=== PATIENT | male | born 1935 | race Caucasian/White ===

== ENCOUNTER 2016-12-29 06:41 | Emergency (ER) | payer OTHER, MEDICARE ==
[~2016-12-29] VITALS: Ht 188 cm; Wt 90.7 kg
[~2016-12-29 06:41] MED LIST: ACULAR10 ML OPHTHALMIC; ADULT LOW DOSE81 MG PO; ALPRAZOLAM 0.50.5 MG; CARVEDILOL12.5 MG PO; COREG PO; COREG25 MG PO; COUMADIN 1MG TAB1 M1 PO; COUMADIN 2 MG TA2 M1 PO; COUMADIN 5 MG TA5 M1 PO; FLONASE 0.05%50 MCG; FUROSEMIDE 20 M20 M1 PO; KEFLEX500 MG PO; LIPITOR20 MG PO; LOVENOX SQ; MECLIZINE 25 MG25 M1 PO; PACERONE 200 M200 M1 PO; PACERONE100 MG PO; PRADAXA150 MG PO; PRED-FORTE OPHTH1 M1 OP; QUINAPRIL 20 MG20 MG PO; QUINU10 PD PO; TORSEMIDE20 MG PO; VIGAMOX3 M1 OPHTHALMIC; XANAX 0.5 MG0.5 M1 PO; XANAX XR2 MG PO; XIBROM5 ML
[2016-12-29] MEDS ORDERED: COUMADIN 1MG TAB1 M1 (06:55)
[2016-12-29] MEDS ORDERED: XANAX 0.5 MG0.5 MG PO (06:56)
[2016-12-29] MEDS ORDERED: DIGOXIN125 MCG PO (06:56)
[2016-12-29] MEDS ORDERED: ACETAMINOPHEN325 M1 PO (06:57)
[2016-12-29 07:25] LABS: HEMATOCRIT 31.9 % (42.0-52.0); HEMOGLOBIN 10.9 gm/dL (14.0-18.0); MCH 32.4 pg (26.0-34.0); MCHC 34.2 g/dL (28.0-37.0); MCV 94.7 fL (80.0-100.0); RBC 3.37 mil/uL (4.50-6.00); RDW 15.3 % (10.5-14.5); WBC 7.3 thou/uL (4.0-11.0)
[2016-12-29 07:34] LABS: PROTIME 31.5 Seconds (9.3-11.4)
== END 2016-12-29 08:07 | disposition home or self-care (01) ==
LOC: ER 06:41
PROVIDERS: Emergency Medicine
DX: S70.02XA Contusion of left hip, initial encounter (principal); I11.0 Hypertensive heart disease with heart failure; I50.9 Heart failure, unspecified; I25.10 Atherosclerotic heart disease of native coronary artery without angina pectoris; Z88.8 Allergy status to other drugs, medicaments and biological substances; Z87.891 Personal history of nicotine dependence; Z79.01 Long term (current) use of anticoagulants; W18.30XA Fall on same level, unspecified, initial encounter; Y93.89 Activity, other specified; Y92.89 Other specified places as the place of occurrence of the external cause; Y99.9 Unspecified external cause status; I48.91 Unspecified atrial fibrillation

== ENCOUNTER 2017-02-16 10:16 | Emergency (ER) | payer OTHER, MEDICARE ==
[~2017-02-16] VITALS: Ht 188 cm; Wt 90.7 kg
[~2017-02-16 10:16] MED LIST changes: +ACETAMINOPHEN325 M1 PO; +COUMADIN 1MG TAB1 M1; +DIGOXIN125 MCG PO; +XANAX 0.5 MG0.5 MG PO
[2017-02-16 11:21] LABS: HEMATOCRIT 36.3 % (42.0-52.0); HEMOGLOBIN 12.2 gm/dL (14.0-18.0); MCH 32.8 pg (26.0-34.0); MCHC 33.7 g/dL (28.0-37.0); MCV 97.3 fL (80.0-100.0); RBC 3.73 mil/uL (4.50-6.00); RDW 14.1 % (10.5-14.5); WBC 6.6 thou/uL (4.0-11.0)
[2017-02-16 11:33] LABS: INR 3.7
== END 2017-02-16 12:51 | disposition home or self-care (01) ==
LOC: ER 10:16
PROVIDERS: Emergency Medicine
DX: S80.01XA Contusion of right knee, initial encounter (principal); R79.1 Abnormal coagulation profile; I48.91 Unspecified atrial fibrillation; I11.0 Hypertensive heart disease with heart failure; I50.9 Heart failure, unspecified; I25.10 Atherosclerotic heart disease of native coronary artery without angina pectoris; F10.99 Alcohol use, unspecified with unspecified alcohol-induced disorder; Z88.8 Allergy status to other drugs, medicaments and biological substances; Z87.891 Personal history of nicotine dependence; W01.0XXA Fall on same level from slipping, tripping and stumbling without subsequent striking against object, initial encounter; Y93.01 Activity, walking, marching and hiking; Y92.092 Bedroom in other non-institutional residence as the place of occurrence of the external cause; Y99.8 Other external cause status

== ENCOUNTER → 2017-09-03 | Outpatient (CLI) | payer OTHER, MEDICARE ==
[~2017-09-03] VITALS: Ht 188 cm; Wt 82.6 kg
--- NOTE | ~2017-09-03 | P ---
[facility] [place] [address] PROCEDURE REPORT Name: STAR DEVLIN Room #: REG [facility]#: [id number] Admission: 09/03/17 Attend Phys: Harley Francisco MD Discharge: Date of : 36 Report #: [id number] THIS REPORT FOR: //name// CC: Luis Francisco PROCEDURE: AV node ablation. PREOPERATIVE DIAGNOSES: Atrial fibrillation and decreased right ventricular pacing. POSTOPERATIVE DIAGNOSES: Atrial fibrillation and decreased right ventricular pacing. HISTORY: The patient is a gentleman with a history of cardiomyopathy, status post BiV ICD who has had atrial fibrillation with rapid ventricular response and difficult to control rates who has decreased biventricular pacing and he is here for an AV node ablation. DESCRIPTION OF PROCEDURE: The patient underwent informed consent. We discussed the details of the procedure including the risks, which include but not limited to bleeding, vascular damage, stroke and [place]. The patient was sedated by the Anesthesiology Service and then I obtained access to the right femoral vein x 1, placing a SR0 sheath and 8 mm ablation catheter into the right atrium. At baseline, the patient was in atrial fibrillation with a ventricular cycle length of 500 milliseconds, QRS duration of 125 milliseconds, QT interval of 380 milliseconds and an HV interval of 52 milliseconds. Prior to the ablation, his ICD was reprogrammed, therapies were off and he was programmed to a VVI 40 mode. Next, ablation was performed at 70 arteaga 60 degrees and within 3.9 seconds, there was evidence of complete heart block. We monitored for a period of 30 minutes and there was no return of conduction. His device was reinterrogated and found to be functioning normally and its therapies were programmed back on. The catheters and sheaths were pulled. Hemostasis was obtained. The patient awoke neurologically and hemodynamically intact with no complications and no significant bleeding. CONCLUSIONS: 1. Successful ablation of the AV node. 2. Successful ICD pacemaker reprogramming. <ELECTRONICALLY SIGNED> By: Harley Francisco MD 09/28/17 0904 1124 00 Harley Francisco MD /nt
[2017-09-03 07:16] VITALS: BP 120/74
[2017-09-03 08:11] LABS: HEMATOCRIT 38.6 % (42.0-52.0); HEMOGLOBIN 13.3 gm/dL (14.0-18.0); MCH 32.7 pg (26.0-34.0); MCHC 34.6 g/dL (28.0-37.0); MCV 94.5 fL (80.0-100.0); PLATELET COUNT 191 thou/uL (150-400); RBC 4.09 mil/uL (4.50-6.00); RDW 14.2 % (10.5-14.5); WBC 5.3 thou/uL (4.0-11.0)
[2017-09-03 08:24] LABS: APTT 30.1 Seconds (24.5-32.8); INR 1.4; PROTIME 14.5 Seconds (9.3-11.4)
[2017-09-03 08:27] LABS: CALCIUM 8.5 mg/dL (8.5-10.1); CREATININE 0.9 mg/dL (0.7-1.3)
[2017-09-03 08:32] LABS: ALBUMIN 2.9 g/dL (3.4-5.0); TOTAL BILIRUBIN 0.3 mg/dL (<0.1-1.0)
[2017-09-03 09:28] LABS: ABSOLUTE NEUTROPHILS 2.4 thou/uL (1.4-8.2)
== END | disposition home or self-care (01) ==
LOC: CATH 06:42
PROVIDERS: Internal Medicine Cardiovascular Disease
DX: I48.91 Unspecified atrial fibrillation (principal); I25.5 Ischemic cardiomyopathy; I49.5 Sick sinus syndrome; I11.0 Hypertensive heart disease with heart failure; I50.9 Heart failure, unspecified; I21.3 ST elevation (STEMI) myocardial infarction of unspecified site; Z95.0 Presence of cardiac pacemaker; Z87.891 Personal history of nicotine dependence
CPT/HCPCS: 62110; 62900; 70005

== ENCOUNTER 2017-10-01 04:43 | Emergency (ER) | payer OTHER, MEDICARE ==
[~2017-10-01] VITALS: Ht 188 cm; Wt 84.4 kg
--- NOTE | ~2017-10-01 | EKG ---
[address] [address] [place] [address] ELECTROCARDIOGRAM REPORT Name: LILIYA DEVLINALD Nik Room #: [facility] Ava#: [id number] Admission: 10/01/17 Attend Phys: Discharge: 10/01/17 Date of : 36 Report #: [id number] THIS REPORT FOR: //name// [facility] ED Test Date: 2017-10-01 Test Time: 04:53:55 Pat Name: STAR DEVLIN Department: Room: Gender: Size Tester: LESLIE : 1935 Requested By: Marcio Valdovinos Order Number: [id number] MD: Jairo Real Measurements Intervals [place] Rate: 80 P: CA: QRS: 131 QRSD: 156 T: 110 QT: 455 QTc: 525 Interpretive Statements Ventricular-paced rhythm No further analysis attempted due to paced rhythm Compared to ECG 06/22/2016 12:15:36 No significant change Electronically Signed On 10-01-2017 8:18:38 COUNTRY PRINTER APPRENTICE by Jairo Real [email or web address] <ELECTRONICALLY SIGNED> By: Jairo Real MD, [facility] 10/01/17817 0453 0453 Jairo Real MD, FACC /EPI
[2017-10-01 05:24] LABS: HEMATOCRIT 39.7 % (42.0-52.0); HEMOGLOBIN 13.4 gm/dL (14.0-18.0); MCH 32.2 pg (26.0-34.0); MCHC 33.8 g/dL (28.0-37.0); MCV 95.3 fL (80.0-100.0); RBC 4.17 mil/uL (4.50-6.00); RDW 13.8 % (10.5-14.5); WBC 6.1 thou/uL (4.0-11.0)
[2017-10-01 05:31] LABS: ANION GAP 9 mmol/L (7-16); BUN 20 mg/dL (7-18); CALCIUM 8.1 mg/dL (8.5-10.1); CHLORIDE 106 mmol/L (98-107); CO2 27 mmol/L (21-32); CREATININE 1.1 mg/dL (0.7-1.3); GLUCOSE 123 mg/dL (74-106); POTASSIUM 4.4 mmol/L (3.5-5.1); SODIUM 142 mmol/L (136-145)
[2017-10-01 05:38] LABS: TROPONIN-I < 0.04 ng/mL (<0.06)
[2017-10-01 07:17] VITALS: BP 132/76
== END 2017-10-01 07:18 | disposition home or self-care (01) ==
LOC: ER 04:43
PROVIDERS: Emergency Medicine
DX: R06.00 Dyspnea, unspecified (principal); R06.02 Shortness of breath; I11.0 Hypertensive heart disease with heart failure; I50.9 Heart failure, unspecified; I48.91 Unspecified atrial fibrillation; Z87.891 Personal history of nicotine dependence

== ENCOUNTER 2018-12-08 21:30 | Inpatient (IN) | payer OTHER, MEDICARE ==
[~2018-12-08] VITALS: Ht 188 cm; Wt 90.7 kg
--- NOTE | ~2018-12-08 | D ---
[facility] [place] [address] DISCHARGE SUMMARY Name: STAR DEVLIN Room #: 360-[facility] IN M.R.#: [id number] Admission: 12/09/18 ������������������ Attend Phys: Mitch Macario Discharge: 12/11/18 ������������������ Date of : 36 Report #: [id number] THIS REPORT FOR: //name// CC: Luis Souza [facility] DATE OF SERVICE: 12/11/2018 FINAL DIAGNOSES: 1. Accidental fall. 2. Contusion of the right knee. 3. Osteoarthritis of the right knee. 4. Laceration of the right elbow. 5. Anticoagulated on Coumadin. 6. Chronic atrial fibrillation. 7. Ischemic cardiomyopathy. HOSPITAL COURSE: The patient was admitted after a fall at home. He had a small laceration of the right elbow that required a few sutures. He had a bruise on the right knee. There were no other fractures identified. He continued his usual home medications. He participated with Physical Therapy during the course of his stay. He still had a lot of pain in his right knee and was weak. He did not feel he could manage at home alone. Plans were made to transfer to a usp facility for continued nursing care and rehabilitation efforts. PHYSICAL EXAMINATION: On the day of discharge: GENERAL: He was awake and alert. VITAL SIGNS: Stable. LUNGS: Clear. HEART: Irregular. ABDOMEN: Soft, normoactive bowel sounds. EXTREMITIES: No edema. There was some bruising around the right knee. DISPOSITION: He is discharged to [facility] with regular diet and activity as tolerated. PT, OT. I will follow his stay there. I signed his transfer orders and discharge medication list. ��������������������������������������������� ���������������������������������������� By: ��������������������������������������������� 0802 1523 Master Carroll MD /nt
[2018-12-08 21:31] VITALS: BP 149/84
[2018-12-08 22:24] LABS: HEMATOCRIT 26.4 % (42.0-52.0); HEMOGLOBIN 8.6 gm/dL (14.0-18.0); MCH 27.1 pg (26.0-34.0); MCHC 32.5 g/dL (28.0-37.0); MCV 83.4 fL (80.0-100.0); RBC 3.16 mil/uL (4.50-6.00); RDW 15.5 % (10.5-14.5); WBC 9.2 thou/uL (4.0-11.0)
[2018-12-08 22:30] LABS: CREATININE 1.2 mg/dL (0.7-1.3); POTASSIUM 4.4 mmol/L (3.5-5.1)
[2018-12-08 22:51] LABS: APTT 35.8 Seconds (24.5-32.8); INR 2.5; PROTIME 26.2 Seconds (9.3-11.4)
[2018-12-09] VITALS (8 sets, daily range): BP systolic 124–165; BP diastolic 54–91
--- NOTE | 2018-12-09 05:36 | NUR ---
PATIENT IS ALERT AND ORIENTED. PATIENT IS UP TIMES TWO. PATIENT HAS A DRESSING ON AVULSION TO RT ELBOW. PATIENTS LBM WAS THE 18TH. PATIENT MANAGES INR FOR WARFARIN AT HOME. PATIENT IS [place] BUT HEARING AIDS ARE LEFT AT HOME. PATIENT HAS A PACEMAKER. PATIENTS HEAD CT AND XRAY OF KNEE ARE NEG. PATIENT HAS A SLIGHT TEMP BUT PATIENT HAS MULT BLANKETS ON. WCM. PATIENT IS RESTING COMFORTABLY IN BED. FALL PRECAUTIONS IN PLACE.
--- NOTE | 2018-12-09 12:07 | NUR ---
assessment: CM REVIEWED CHART AND MET WITH PATIENT AT THE BEDSIDE. PT WAS ADMITTED FOR RIGHT KNEE PAIN AFTER A FALL AT HOME. PT REPORTS HE LIVES IN A HOUSE BY HIMSELF. PT REPORTS HE HAS NO STEPS TO ENTER OR ONCE INSIDE. PT REPORTS HE AMBULATES USING A CANE. PT REPORTS HAVING GRAB BARS IN THE SHOWER AND REPORTS BEING INDEPENDENT WITH ADLS. 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 PT REPORTS THAT HE HAS NOT HAD HH IN THE PAST OR BEEN TO A SNF. PT REPORTS THAT HE WEARS A LIFE ALERT AT HOME AND ALSO HAS A VERY SUPPORTIVE FRIEND (TAD) WHO HELPS HIM OUT IF NEEDED. LESTER IS THE PATIENTS BEST FRIEND. CM SPOKE WITH TAD AND SHE IS THE ONE THAT WILL TAKE PATIENT HOME ONCE MEDICALLY STABLE. CM DISCUSSED ROLE. PT/OT EVALS ARE PENDING. CM WILL CONTINUE TO FOLLOW TO ASSIST NEEDED.
--- NOTE | 2018-12-09 15:32 | NUR ---
PATIENT NOTED TO BE ANXIOUS THIS AM. STATES HE WANTS TO GO HOME TODAY. HE DOES NOT FEEL LIKE STAYING HERE. HE IS HOWEVER QUITE WEAK TO MOVE WITHOUT ASSISTANCE. UNABLE TO BEAR WWEIGHT TO RIGHT LEG DUE TO FALL. HE STATES IT HURTS. PT/OT CONSULTED. WILL AWAIT THIS INPUT.
--- NOTE | 2018-12-10 00:56 | NUR ---
PATIENT IS ALERT AND ORIENTED. PATIENT IS UP TIME 1-2 PIVIOT TRANSFER. PATIENT HAS PT AND OT CONSULTED. PATIENT HAS DIFFICULTY BEARING WEEIGHT ON RT KNEE. PATIENTS PAIN IS CONTROLLED WITH PAIN MEDS IN COMBINATION WITH ANXIETY MEDS. PATIENT IS PENDING DISCHARGE TODAY GIVEN HE CAN RECEIVE HELP TO GET AROUND AT HOME. PATIENT IS RESTING COMFORTABLY IN BED. WCM. PATIENT USES URINAL. FALL PRECAUTIONS IN PLACE. PATIENT IS PROGRESSING TO GOALS
[2018-12-10 05:22] VITALS: BP 120/71
--- NOTE | 2018-12-10 10:28 | H ---
[facility] [place] [address] HISTORY AND PHYSICAL Name: STAR DEVLIN Room #: 360-P ADM IN M.R.#: [id number] Admission: 12/09/18 ������������������ Attend Phys: Mitch Macario Discharge: ������������������ Date of : 36 Report #: [id number] THIS REPORT FOR: //name// CC: Luis Souza [facility] DATE OF SERVICE: 12/09/2018 CHIEF COMPLAINT: Fall and weakness. HISTORY OF PRESENT ILLNESS: The patient is an 82-year-old gentleman who was admitted through the Emergency Room with an accidental fall at home. He said he was in his usual state of health when he was reaching over to grab something from the lower cabinet and he felt his right knee just sort of "gave way" and he fell to the ground. He had no loss of consciousness, chest pain, or vertigo type symptoms leading up to this. He was unable to get up and called his neighbor and they ultimately called for EMS and was brought to the Emergency Room. There, his x-ray revealed degenerative arthritis of the right knee and had a small laceration on the right elbow, required a couple of stitches. Other workup was unremarkable; however, he was unable to stand or walk safely and independently and then was admitted to the hospital. 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 PAST SURGICAL HISTORY: Noncontributory. FAMILY HISTORY: Unknown. SOCIAL HISTORY: He lives alone at home. Prior tobacco use, none current, or alcohol use. ALLERGIES: HYDROCHLOROTHIAZIDE. MEDICATIONS: Alprazolam 0.5 mg, torsemide 20 mg, Coreg 25 mg twice a day, aspirin 81 mg, Coumadin 1 mg, quinapril 10 mg, Tylenol. REVIEW OF SYSTEMS: He denies headache, chest pain, shortness of breath, abdominal pain, nausea, vomiting, diarrhea, constipation, dysuria, syncope. He complains of right knee pain. OBJECTIVE: VITAL SIGNS: Temperature 36.9, pulse 74, respirations 19, blood pressure 138/84, O2 sat 98% on room air. [address] [address] HISTORY AND PHYSICAL Name: STAR DEVLIN Room #: [address] [place] [address] [facility].#: [id number] Admission: 12/09/18 ������������������ Attend Phys: Mitch Macario Discharge: ������������������ Date of : 36 Report #: [id number] GENERAL: He is awake and alert, in no distress. HEAD AND NECK: Unremarkable. LUNGS: Clear. HEART: Irregular. ABDOMEN: Soft, normoactive bowel sounds. EXTREMITIES: No edema. He has bony deformity of the right knee, there is a skin tear in the right elbow. NEUROLOGIC: Cranial nerves intact. He recognizes me. Speech is fluent. He is alert and oriented. LABORATORY DATA: Reviewed. X-ray and CT head reviewed. ASSESSMENT: 1. Accidental fall. 2. Gait disturbance. 3. Degenerative arthritis of the right knee. 4. Chronic atrial fibrillation. 5. Chronic anticoagulation with Coumadin. 6. Hypertension. 7. Cardiomyopathy. 8. Anemia of chronic disease. 9. Senile debility. 10. Small laceration, right elbow. PLAN: Begin therapies today and resume his usual home medications. He may need to pursue some rehabilitation efforts outside the hospital once he is more mobile. ��������������������������������������������� <ELECTRONICALLY SIGNED> ���������������������������������������� By: Master Carroll MD ��������������������������������������������� 12/10/18 1028 1048 1111 Master Carroll MD /nt
[2018-12-10] MEDS ORDERED: TRAMADOL 50 MG50 MG PO (10:45)
[2018-12-10] MEDS ORDERED: ACETAMINOPHEN325 M1 PO (10:45)
--- NOTE | 2018-12-10 12:28 | NUR ---
DISCHARGE PLANNING. ANTICIPATED DISCHARGE TOMORROW. POST ACUTE CARE RECOMMENDED. REFERRAL FAXED TO [facility]. CALL PLACED TO KARINA PATTERSON, TO NOTIFY OF PATIENT REFERRAL AND DISCHARGE NEEDS. VOICEMAIL LEFT FOR YESENIA REGARDING [employer] AND CM CONTACT NUMBER PROVIDED. FOLLOWING TO ASSIST WITH DISCHARGE. UNIT CM/SW AWARE.
--- NOTE | 2018-12-10 14:49 | NUR ---
PATIENT SEEN BY MACRINA CARPENTER NP WITH DR. MATOS. PATIENT DOES NOT MEET CRITERIA FOR ACUTE REHAB STAY AT THIS TIME. IF THERE ARE CHANGES IN THE PATIENT'S MEDICAL CONDITION, FURTHER ASSESSMENT CAN BE COMPLETED. THANK YOU FOR THIS REFERRAL.
[2018-12-10 15:45] VITALS: BP 137/77
--- NOTE | 2018-12-10 16:24 | NUR ---
ASSUMED PATIENT CARE AT 0700. A/O X4. MAX ASSISTED FOR TRANSFER. C/O RIGHT KNEE PAIN WHEN MOVE. SLOWLY TOWARDS POC GOALS.
[2018-12-10 19:45] VITALS: BP 108/67
--- NOTE | 2018-12-11 03:27 | NUR ---
PATIENT IS ADVANCING IN HIS CARE PLAN. VITAL SIGNS STABLE WITH PATIENT HAVING NO COMPLAINTS OF PAIN OR NAUSEA. PATIENT IS MOSTLY ORIENTED BUT OFTEN SHOWS SIGNS OF CONFUSION AND FORGETFULNESS. WOUND DRESSING TO ELBOW CHANGED. PATIENT IS A HIGH FALL RISK AND REQUIRES TWO PERSON MAX ASSIST WHEN TRANSFERRING. PROBABLE DISCHARGE TO SNF TODAY. CONTINUE PLAN OF CARE.
--- NOTE | 2018-12-11 04:18 | NUR ---
ASSUMED PATIENT CARE AT 1845. PATEINT IS ALERT TO PERSON, TIME, AND SITUATION. HE IS CONFUSED AT TIMES WELL FORGETFULL, THINKING HE IS AT HOME. PATIENT IS A HIGH FALL RISK DUE TO HIS ADMITTING DIAGNOSIS OF FALLING AT HOME AND BEING UNABLE TO GET UP. HE IS ALSO A HIGH FALL RISK DUE TO HIS ACTIVITY INTOLERANCE, EXTREME WEAKNESS, AND PATEINTS REQUEST TO BE NON-WEIGHT BEARING ON HIS R LEG. HE IS HAS IMPAIRED SKIN INTEGRITY FROM HIS FALL AT HOME. HE HAS MULTIPLE BRUISES TO HIS BODY WELL A LACERATION WHICH REQUIRED STITCHES TO HIS R ELBOW. THE DISCHARGE PLAN FOR HIM IS TO GO TO [place] FOR REHAB. PATIENT IS PLEASANT AND COOPERATIVE WITH CARE.
[2018-12-11 04:35] VITALS: BP 108/62
[2018-12-11 07:08] VITALS: BP 110/65
[2018-12-11 08:59] VITALS: BP 110/65
--- NOTE | 2018-12-11 13:46 | NUR ---
PATIENT DISCHARGED AT THIS TIME TO SNF. HE DID SEEM WORRIED BUT DISCHARGE PROCESS EXPLAINED TO HIM. HE IS PLEASANT. DOES NOT SEEM TO BE IN PAIN. WILL CONT WITH PLAN OF CARE.
== END 2018-12-11 14:05 | DRG 605 ==
LOC: ER 21:30 → 3W 12-09 01:05 → EROBS 12-09 01:05 → 3W 12-09 02:07
PROVIDERS: Emergency Medicine; ADMIT Internal Medicine
PROC: 0HQDXZZ Repair Right Lower Arm Skin, External Approach (ICD-10-PCS; principal; 2018-12-11)
DX: S51.011A Laceration without foreign body of right elbow, initial encounter (principal); S09.90XA Unspecified injury of head, initial encounter; M25.561 Pain in right knee; I25.5 Ischemic cardiomyopathy; I49.5 Sick sinus syndrome; I25.10 Atherosclerotic heart disease of native coronary artery without angina pectoris; I50.9 Heart failure, unspecified; S80.01XA Contusion of right knee, initial encounter; M17.11 Unilateral primary osteoarthritis, right knee; I48.2 Chronic atrial fibrillation; I11.0 Hypertensive heart disease with heart failure; D63.8 Anemia in other chronic diseases classified elsewhere; Z95.5 Presence of coronary angioplasty implant and graft; Z88.8 Allergy status to other drugs, medicaments and biological substances; Z87.891 Personal history of nicotine dependence; Z79.01 Long term (current) use of anticoagulants; W18.39XA Other fall on same level, initial encounter; Y93.89 Activity, other specified; Y92.89 Other specified places as the place of occurrence of the external cause; Y99.8 Other external cause status; Z95.0 Presence of cardiac pacemaker; Z79.82 Long term (current) use of aspirin; Z79.899 Other long term (current) drug therapy
CPT/HCPCS: 10080

== ENCOUNTER → 2019-01-14 | Outpatient (CLI) | payer OTHER, MEDICARE ==
[~2019-01-14] MED LIST changes: +TRAMADOL 50 MG50 MG PO
== END ==
LOC: CAT 10:08
DX: M17.11 Unilateral primary osteoarthritis, right knee (principal); M71.21 Synovial cyst of popliteal space [Baker], right knee

== ENCOUNTER 2019-04-14 06:00 | Inpatient (IN) | payer OTHER, MEDICARE ==
[2019-04-05 09:54] LABS: ALBUMIN 3.5 g/dL (3.4-5.0); CALCIUM 8.9 mg/dL (8.5-10.1); CREATININE 0.8 mg/dL (0.7-1.3); POTASSIUM 4.5 mmol/L (3.5-5.1)
[2019-04-05 09:57] LABS: HEMATOCRIT 26.5 % (42.0-52.0); HEMOGLOBIN 7.9 gm/dL (14.0-18.0); MCHC 29.7 g/dL (28.0-37.0); MCV 63.9 fL (80.0-100.0); RBC 4.15 mil/uL (4.50-6.00); RDW 19.5 % (10.5-14.5); WBC 6.6 thou/uL (4.0-11.0)
[2019-04-05 10:04] LABS: INR 2.1; PROTIME 22.1 Seconds (9.3-11.4)
[2019-04-05 14:49] LABS: URINE BILIRUBIN NEGATIVE (Negative); URINE BLOOD NEGATIVE (Negative); URINE CLARITY CLEAR; URINE COLOR YELLOW; URINE GLUCOSE-RANDOM* NEGATIVE (Negative); URINE KETONES NEGATIVE (Negative); URINE LEUKOCYTES-REFLEX NEGATIVE (Negative); URINE NITRITE-REFLEX NEGATIVE (Negative); URINE PROTEIN (DIPSTICK) NEGATIVE (Negative); URINE SPECIFIC GRAVITY 1.025 (1.005-1.035); URINE UROBILINOGEN 0.2 E.U./dl (0.2-1.0)
[2019-04-14] VITALS (8 sets, daily range): BP systolic 120–131; BP diastolic 54–72
[~2019-04-14] VITALS: Ht 188 cm; Wt 85.8 kg
--- NOTE | ~2019-04-14 | HC ---
[facility] [place] [address] CONSULTATION Name: STAR DEVLIN Room #: 429-P [facility] IN ..#: [id number] Admission: 04/14/19 Attend Phys: Master Andino MD Discharge: Date of : 36 Report #: [id number] THIS REPORT FOR: //name// CC: Luis Andino DATE OF SERVICE: 04/16/2019 ATTENDING PHYSICIAN: Dr. Master Andino. CONSULTING PHYSICIAN: Dr. Johnnie Plunkett. DICTATING PHYSICIAN: Dr. Johnnie Plunkett. CHIEF COMPLAINT: Right knee surgery. HISTORY OF PRESENT ILLNESS: The patient is an 83-year-old gentleman with known history of right knee pain, which had been progressively getting worse. The patient had failed conservative treatment and underwent right total knee arthroplasty. Postop, he continues to have pain in his right knee, but has been participating in therapy. PAST MEDICAL HISTORY: Significant for history of knee arthritis, hypertension, acute congestive heart failure. PAST SURGICAL HISTORY: Not known. ALLERGIES: He is not known to be allergic to medication. MEDICATIONS: He was currently on lisinopril, Tylenol, aspirin, alprazolam, oxycodone, Zofran, and warfarin for DVT prophylaxis. REVIEW OF SYSTEMS: The patient did complain of having some pain in his right knee. He had low hemoglobin postop and has received blood transfusion. His hemoglobin this morning was 8. He denied having any shortness of breath. The patient is wanting to return home as soon as possible. He denied having any chest pain. No breathing difficulty. No nausea, vomiting, no abdominal pain or urinary symptoms. PHYSICAL EXAMINATION: GENERAL: Pleasant elderly gentleman, who was resting in bed, did not appear to be in distress. He was awake, alert, oriented to place and person. He was having a low-grade. temperature 100.1, pulse of 70, respiratory rate of 16, blood pressure 126/91, oxygen saturation 94% on room air. HEENT: Skull was atraumatic. There was mild pallor, no icterus. Mucosa was moist. [facility] [address] [place] [address] CONSULTATION Name: DEVLINSTAR Room #: 429-P [facility] IN ..#: [id number] Admission: 04/14/19 Attend Phys: Master Andino MD Discharge: Date of : 36 Report #: [id number] NECK: Supple. LUNGS: Clear to auscultation bilaterally with no wheeze or crackles. HEART: First and second normal. ABDOMEN: Soft, nontender, bowel sounds normally heard. EXTREMITIES: The patient had right knee incision, which was clean and dry. There was no calf swelling or tenderness noted and he was moving all 4 extremities equally and normally. LABORATORY DATA: This morning showed a white cell count 10.9, hemoglobin of 8, hematocrit 26.2 and a platelet count of 333. PT was 11.4 with INR of 1.1. ASSESSMENT: 1. Right knee degenerative arthritis, status post total knee arthroplasty. 2. Hypertension. 3. Anemia. 4. Congestive heart failure, compensated. PLAN: To continue on current medications. Continue with his physical therapy and discharge plans as per orthopedic surgeon. Would like to thank Dr. Andino following the part of the team taking care of the patient. By: 0901 0930 Johnnie Plunkett MD /nt
[~2019-04-14 06:00] MED LIST changes: -ALPRAZOLAM 0.50.5 MG; +ALPRAZOLAM 0.50.5 MG PO; -COUMADIN 1MG TAB1 M1; +TYLENOL EXTRA500 MG PO
[2019-04-14 07:06] LABS: INR 1.1; PROTIME 11.6 Seconds (9.3-11.4)
[2019-04-14 07:10] LABS: WBC 6.9 thou/uL (4.0-11.0)
[2019-04-14 07:12] LABS: HEMATOCRIT 24.2 % (42.0-52.0); HEMOGLOBIN 7.1 gm/dL (14.0-18.0); MCH 18.5 pg (26.0-34.0); MCHC 29.2 g/dL (28.0-37.0); MCV 63.5 fL (80.0-100.0); RBC 3.81 mil/uL (4.50-6.00); RDW 19.6 % (10.5-14.5)
--- NOTE | 2019-04-14 17:59 | NUR ---
PATIENT ARRIVED TO FLOOR AT 1415.PT HAD RIGHT TOTAL KNEE SURGERY.PATIENT HAS IV FLUIDS INFUSING.ICE PACK INTACT.PT HAS FLUIDS AND IS TOLERATING WELL.PATIENT HAS A PACEMAKER THAT IS V PACED.TEDS IN INTACT.SCDS INTACT.PATIENT HAD SOME PAIN AND WAS GIVEN PAIN MEDICATIONS.PATIENT WAS GIVEN HIS DAILY HOME MEDICATIONS.BLOOD THINNER IS PLACED ON HOLD UNTIL IT IS OKAY TO GIVE PER THE SURGEON ORDER.PATIENT IS VERY UPSET ABOUT HOW HIS P.O. LORAZEPAM IS GIVEN IN THE HOSPITAL.PATIENT WAS EDUCATED THAT THAT MEDICATION IS GIVEN QID THROUGHOUT THE DAY, AND NOT GIVEN ALL AT ONCE.PATIENT NEEDS TO BE EDUCATED ON MEDICATIONS FOR EACH MED PASS.PATIENT ALSO STATED THAT HE WANTS MUCH LORAZEPAM HE COULD GET.PATIENT WAS EDUCATED THAT HE WILL GET THIS MED EVERY 4 HOURS NEEDED, NOT SCHEDULED,HOW IT WAS PRECRIBED BY HIS PRIMARY DOCTOR,DR. ANTUNEZ.PATIENT HAS CALL LIGHT,URINAL, PHONE, AND PERSONAL BELONGINGS WITHIN REACH.FALL PRECAUTIONS ARE IN PLACE.NUMBER FOR PATIENT'S FRIEND IS ON THE BOARD, IF THEIR ARE ANY ISSUES.DR. OTTO STATED IF THEIR ARE ANY ISSUES TO CALL ON HIS CELL PHONE.[phone].THE HOSPITALIST ANIMAL SURGEON FOR [employer] IS .
--- NOTE | 2019-04-15 04:00 | NUR ---
PATIENT ALERT AND ORIENTED X3-4. KNOWS WHO HE IS, WHY HE IS HERE, WHERE HE IS, AND THE TIME OF YEAR MOST OF THE TIME BUT IS VERY FORGETFUL. EASILY AGITATED. CONFUSED ABOUT SIMPLE THINGS. DRESSING ON R KNEE D/I. HEMAVAC THAT WILL BE PULLED THIS AM. IV FLUIDS RUNNING. DENIED PAIN. SLEPT MOST OF NIGHT.
[2019-04-15 05:15] VITALS: BP 107/58
[2019-04-15 05:50] LABS: MCV 63.4 fL (80.0-100.0)
[2019-04-15 05:52] LABS: MCH 18.4 pg (26.0-34.0); MCHC 29.1 g/dL (28.0-37.0); RBC 3.1 mil/uL (4.50-6.00); RDW 19.2 % (10.5-14.5); WBC 10.7 thou/uL (4.0-11.0)
[2019-04-15 05:56] LABS: HEMATOCRIT 19.7 % (42.0-52.0); HEMOGLOBIN 5.7 gm/dL (14.0-18.0)
[2019-04-15 06:35] LABS: HEMOGLOBIN 5.6 gm/dL (14.0-18.0)
[2019-04-15 06:36] LABS: HEMATOCRIT 19.8 % (42.0-52.0)
[2019-04-15 07:15] VITALS: BP 109/58
[2019-04-15 09:15] VITALS: BP 131/67; BP 131/76
[2019-04-15 12:31] VITALS: BP 112/59; BP 132/66
--- NOTE | 2019-04-15 14:23 | O ---
[facility] [place] [address] OPERATIVE REPORT Name: STAR DEVLIN Room #: 429-P [facility] IN M.R.#: [id number] Admission: 04/14/19 Attend Phys: Master Andino MD Discharge: Date of : 36 Report #: [id number] THIS REPORT FOR: //name// CC: Amadornorman Chicas Master Andino DATE OF SERVICE: 04/14/2019 PREOPERATIVE DIAGNOSIS: End-stage degenerative arthritis, right knee. POSTOPERATIVE DIAGNOSIS: End-stage degenerative arthritis, right knee. PROCEDURE: Right total knee arthroplasty. SURGEON: Master Andino MD INDICATIONS: This frail, but still alert and active 83-year-old gentleman complains of severe progressive right knee pain with stiffness. Clinical exam and x-rays confirm rather severe end-stage degenerative arthritis with moderate valgus malalignment. We have discussed treatment options and elected to proceed with total knee arthroplasty. DESCRIPTION OF PROCEDURE: The patient was taken to the operating room where he was placed under general anesthesia. Prophylactic intravenous antibiotics were administered. The right knee and leg were meticulously prepped and draped and a thigh tourniquet inflated to 300 mmHg. An anterior longitudinal skin incision was made and carried through the medial retinaculum. The patella was reflected laterally and marked; degenerative change in all 3 compartments was noted. The [employer] knee system was utilized. The intramedullary guides were used on both the femur and the tibia. The femur was cut in 6 degrees of valgus, the tibia cut perpendicular to the long axis of bone. Sufficient bone was resected to correct the mild valgus malalignment. A size 7 femoral component seemed to fit nicely. A size 6 tibial component also fit nicely. A trial reduction was performed and an 11 mm polyethylene spacer resulted in full knee extension, satisfactory flexion and good stability with varus and valgus stress. The patellar surface was resected and a 35 mm patellar button fit nicely. The trial components were removed. The surfaces were thoroughly irrigated and dried. The intramedullary canal was blocked with bone block on both the femoral and tibial sides. The [employer] knee system was utilized. The size 7 right femoral component and the size 6 tibial component were brought on to the field. Methyl methacrylate cement was injected into the porous surface of the tibia and the size 6 tibial baseplate was inserted, impacting this into appropriate position. It seated nicely and appeared to be secure. Excess cement was removed around its margin. The 11 mm polyethylene insert was snapped into place. It also seated well and appeared to be secure. The size [address] [address] OPERATIVE REPORT Name: DEVLINSTAR K Room #: 429-P [facility] IN M.R.#: [id number] Admission: 04/14/19 Attend Phys: Master Andino MD Discharge: Date of : 36 Report #: [id number] femoral component with a cruciate retaining style was inserted using some cement distally as there was moderate osteopenia. This component also seated nicely and appeared to be secure. A 35 mm patellar button was cemented into place using appropriate anchor holes and secured with a patellar clamp until the cement had fully hardened. Once the cement was fully cured, range of motion, alignment and stability were assessed and felt to be satisfactory. The patella tracks nicely and appears to be stable. The knee demonstrates full knee extension and flexion beyond 140 degrees. A single Hemovac was left in the wound exiting through a separate stab incision. The fascia was closed with multiple #1 Vicryl sutures. The subcutaneous tissues were closed with 0 Monocryl. The skin was closed with skin marsha. A sterile dressing was applied. The patient was awakened and returned to recovery room in good condition. <ELECTRONICALLY SIGNED> By: Master Andino MD 04/15/19 1423 0916 0932 Master Andino MD /nt
--- NOTE | 2019-04-15 15:25 | NUR ---
CAME BACK FROM LUNCH PT'S BLOOD WAS DONE, HE SAID HE'D HIT THE CALL LIGHT NO ONE CAME. VITAL SIGNS BEING TAKEN WILL ENTER. PT IN GOOD SPIRITS, ASKING FOR URINAL
--- NOTE | 2019-04-15 16:01 | NUR ---
ASSESSMENT-PT LIVES AT HOME ALONE BUT HAS HIRED 16/03 HELP. PT SAYS HE HAS HAD HH IN THE PAST. PT HAS LIFE ALERT. PT HAS A RAMP TO ENTER THE HOME. PT HAS A LEAD DATABASE ADMINISTRATOR THAT COMES EVERY 2 WKS. PT HAS A FRIEND TAD THAT HELPS HIM WITH HIS AFFAIRS. PT USES A WC MOSTLY TO GET AROUND BUT DOES HAVE A WALKER TOO. FOLLOWING TO ASSIST WITH DC PLANNING.
[2019-04-15 19:15] VITALS: BP 124/63
[2019-04-16 04:50] VITALS: BP 138/74
--- NOTE | 2019-04-16 05:06 | NUR ---
ASSUMED PT CARE 1899. PT ALERT AND ORIENTED. REASSESSMENT COMPLETE. VSS. IV DRESSING C/D/I. REPORTS PAIN, SEE EMAR. DENIES N/V. URINAL AT BEDSIDE. CALL LIGHT AND PERSONAL BELONIGNS WITHIN REACH, WILL CONTINUE POC UNTIL EOS.
[2019-04-16 07:37] VITALS: BP 126/91
[2019-04-16 07:48] LABS: HEMATOCRIT 26.2 % (42.0-52.0); MCH 20.6 pg (26.0-34.0); MCHC 30.7 g/dL (28.0-37.0); MCV 67.1 fL (80.0-100.0); RBC 3.9 mil/uL (4.50-6.00); RDW 23.7 % (10.5-14.5); WBC 10.9 thou/uL (4.0-11.0)
[2019-04-16 07:56] LABS: INR 1.1; PROTIME 11.4 Seconds (9.3-11.4)
[2019-04-16 15:26] VITALS: BP 149/66
--- NOTE | 2019-04-16 18:21 | NUR ---
PT A&OX3.IV INTACT IN L AC. VALDO DRSG TO R KNEE D/I. PT CONFUSED AT TIMES. REFUSED PT TODAY. DPOA WAS IN THIS AFTERNOON, STATES SHE HAS 19/03 CARE FOR HIM AT HOME AND HAS [facility] CARE. PLANS ARE POSSIBLE DC [place]. WILL CONT POC.
[2019-04-16 20:50] VITALS: BP 140/67
--- NOTE | 2019-04-17 03:40 | NUR ---
ASSUMED PT CARE 1899. PT ALERT AND ORIENTED, CONFUSION AND FORGETFULNESS. REASSESSMENT COMPLETE. VSS. REPORTS PAIN, SEE EMAR. DENIES N/V. WORKING TOWARD POC. CALL LIGHT AND PERSONAL BELONIGNS WITHIN REACH. WILL CONTINUE POC UNTIL EOS.
[2019-04-17 03:55] VITALS: BP 142/59
[2019-04-17 07:18] LABS: HEMATOCRIT 23.9 % (42.0-52.0); HEMOGLOBIN 7.4 gm/dL (14.0-18.0); MCH 20.6 pg (26.0-34.0); MCHC 30.9 g/dL (28.0-37.0); MCV 66.7 fL (80.0-100.0); RBC 3.58 mil/uL (4.50-6.00); RDW 24.2 % (10.5-14.5); WBC 10.5 thou/uL (4.0-11.0)
[2019-04-17 07:22] VITALS: BP 127/59
[2019-04-17 07:30] LABS: INR 1.2; PROTIME 12.6 Seconds (9.3-11.4)
[2019-04-17 13:34] VITALS: BP 127/59
--- NOTE | 2019-04-17 18:42 | NUR ---
DC ORDERS RECEIVED. IV REMOVED FROM L AC. W/C TRANSPORTATION PICKED UP PT. DC INSTRUCTIONS, SCRIPT AND F/U APPOINTMENT REVIEWED WITH PT.
== END 2019-04-17 18:45 | disposition home or self-care (01) | DRG 470 ==
LOC: TBA 06:00 → OR 06:00 → 4E 14:23
PROVIDERS: Anesthesiology; Orthopaedic Surgery Hand Surgery; ADMIT Orthopaedic Surgery
PROC: 0SRC0J9 Replacement of Right Knee Joint with Synthetic Substitute, Cemented, Open Approach (ICD-10-PCS; principal; 2019-04-14)
PROC: 30233N1 Transfusion of Nonautologous Red Blood Cells into Peripheral Vein, Percutaneous Approach (ICD-10-PCS; 2019-04-15)
DX: M17.11 Unilateral primary osteoarthritis, right knee (principal); D64.9 Anemia, unspecified; I50.9 Heart failure, unspecified; I25.10 Atherosclerotic heart disease of native coronary artery without angina pectoris; I25.5 Ischemic cardiomyopathy; I11.0 Hypertensive heart disease with heart failure; E78.5 Hyperlipidemia, unspecified; Z79.82 Long term (current) use of aspirin; Z79.899 Other long term (current) drug therapy; Z95.0 Presence of cardiac pacemaker; Z79.01 Long term (current) use of anticoagulants; Z95.5 Presence of coronary angioplasty implant and graft; Z88.8 Allergy status to other drugs, medicaments and biological substances; Z98.42 Cataract extraction status, left eye; Z87.891 Personal history of nicotine dependence; I25.2 Old myocardial infarction
CPT/HCPCS: 10783; 50010; 50101; 50415; 50954; 51130; 51225; 51412; 53364; 56525; 57095; 57104; 57180; 62110; 62900; 64042; 70005

== ENCOUNTER 2019-05-21 14:18 | Inpatient (IN) | payer OTHER, MEDICARE ==
[~2019-05-21] VITALS: Ht 188 cm; Wt 89.5 kg
[2019-05-21 14:20] VITALS: BP 148/79
[2019-05-21 15:29] LABS: HEMATOCRIT 28.3 % (42.0-52.0); HEMOGLOBIN 8.1 gm/dL (14.0-18.0); MCH 18.2 pg (26.0-34.0); MCHC 28.8 g/dL (28.0-37.0); MCV 63.4 fL (80.0-100.0); PLATELET COUNT 438 thou/uL (150-400); RBC 4.46 mil/uL (4.50-6.00); RDW 23.3 % (10.5-14.5); WBC 8.5 thou/uL (4.0-11.0)
[2019-05-21 15:38] LABS: ANION GAP 5 mmol/L (7-16); BUN 8 mg/dL (7-18); CALCIUM 7.9 mg/dL (8.5-10.1); CHLORIDE 87 mmol/L (98-107); CO2 29 mmol/L (21-32); CREATININE 0.7 mg/dL (0.7-1.3); GLUCOSE 113 mg/dL (74-106); POTASSIUM 5.1 mmol/L (3.5-5.1); SODIUM 121 mmol/L (136-145)
[2019-05-21 15:43] LABS: APTT 42.9 Seconds (24.5-32.8); INR 3.8; PROTIME 39.6 Seconds (9.3-11.4)
[2019-05-21 15:48] LABS: TROPONIN-I <0.06 ng/mL (<0.06)
[2019-05-21 16:19] LABS: ABSOLUTE NEUTROPHILS 6.5 thou/uL (1.4-8.2); TARGET CELLS 1+
[2019-05-21 16:20] LABS: HYPOCHROMASIA 3+; MICROCYTES 3+; POLYCHROMASIA 1+
[2019-05-21 16:51] VITALS: BP 148/79
[2019-05-21 17:06] VITALS: BP 148/75
[2019-05-21 17:30] VITALS: BP 148/84
--- NOTE | 2019-05-21 18:06 | EKG ---
[address] [place] [address] ELECTROCARDIOGRAM REPORT Name: STAR DEVLIN Room #: 206-P ADM IN M.R.#: [id number] Admission: 05/21/19 Attend Phys: Mitch Macario Discharge: Date of : 37 Report #: [id number] THIS REPORT FOR: //name// [facility] ED Test Date: 2019-05-21 Test Time: 14:32:17 Pat Name: STAR DEVLIN Department: Room: 206 Gender: M Scallop Cutter Machine: [place] : 1935 Requested By: Leighton Leyva Order Number: [id number] MD: Harley Francisco Measurements Intervals [place] Rate: 73 P: 0 AL: 180 QRS: 144 QRSD: 150 T: 99 QT: 452 QTc: 499 Interpretive Statements Ventricular-paced rhythm No further analysis attempted due to paced rhythm Compared to ECG 10/01/2017 04:53:55 No significant changes Electronically Signed On 05-21-2019 18:06:15 CDT by Harley Francisco [email or web address] <ELECTRONICALLY SIGNED> By: Harley Francisco MD 05/21/191805 143 143 Harley Francisco MD /GUY
--- NOTE | 2019-05-21 18:35 | NUR ---
PT TO THE UNIT FROM THE ER WITH CHF - OREINTED TO ROOM AND BEDSPACE - ASSESSMENT CHARTED, DR WICHO HOLM AND ORDERS RECIEVED. CO'S OF PAIN IN R KNEE WHERE KNEE HAS BEEN REPLACED IN THE NOT TOO DISTANT PAST. PT WITH FLAT AFFECT BUT PLEASANT. PT NOT WANTING DINNER TRAY GIVEN TURKEY SANDWICH. NO SOB NOTED SINCE ADMISSION. APPEARS TO BE COMFORABLE AT THE PRESENT TIME.
[2019-05-21 20:02] VITALS: BP 135/60
--- NOTE | 2019-05-22 03:33 | NUR ---
ASSESSMENTS CHARTED, MEDS CHARTED. PATIENT CAME IN DURING THE DAY THROUGH THE ED WITH CHF EXACERBATION AND HYPONATREMIA. PATIENT HAS BEEN VPACED DURING SHIFT. LOWER EXTREMITIES HAVE BEEN +3 IN FEET AND ANKLES, +2 IN RIGHT KNEE AND BILATERAL LEGS. ON ROOM AIR, HAS PHOENIX FOR ACURATE I & O'S. PATIENT IS BEDBOUND AT HOME WITH 24 HOUR CAREGIVERS. SKIN IS OK.
[2019-05-22 04:46] VITALS: BP 131/60
[2019-05-22 04:58] LABS: INR 3.5; PROTIME 36.1 Seconds (9.3-11.4)
[2019-05-22 05:09] LABS: CALCIUM 7.8 mg/dL (8.5-10.1); CREATININE 0.7 mg/dL (0.7-1.3)
[2019-05-22 05:11] LABS: POTASSIUM 4.1 mmol/L (3.5-5.1)
[2019-05-22 07:25] VITALS: BP 148/68
[2019-05-22 11:30] VITALS: BP 101/49
[2019-05-22 15:45] VITALS: BP 102/51
--- NOTE | 2019-05-22 17:22 | NUR ---
ASSUMED CARE AT SHIFT CHANGE AND ASSESMENT DOCUMENTED. PATIENT WAS ANXIOUS THIS MORNING, MEDICATED INDICATED. VSS AND AFEBRILE. PROGRESSING SLOWLEY ,HIS BREATHING BETTER, [place] TO DD AND WILL CONTINUE WITH POC.
[2019-05-22 19:45] VITALS: BP 107/42
--- NOTE | 2019-05-22 23:58 | NUR ---
ASSESSMENTS CHARTED. MEDS CHARTED. PATIENT RESTING IN BED DURING SHIFT. DOES NOT TRY TO GET OUT OF BED HAS 16/03 CARE GIVERS AT HOME. USING ICE PACKS ON RIGHT KNEE 30 MINUTES AT A TIME TO CONTROL PAIN. PATIENT WANTS TO START PHYSICAL THERAPY AGAIN. FALL PRECAUTIONS IN PLACE.
--- NOTE | 2019-05-23 00:09 | NUR ---
ASSESSMENTS CHARTED. MEDS CHARTED. UP AT HAILY IN ROOM, DENIES PAIN. NPO SINCE MIDNIGHT FOR NUCLEAR STRESS TEST IN THE MORNING REDRESSED RIGHT AC IV ACCESS.
[2019-05-23 03:58] VITALS: BP 115/57
[2019-05-23 05:19] LABS: MCH 18.2 pg (26.0-34.0); RBC 3.41 mil/uL (4.50-6.00)
[2019-05-23 05:21] LABS: HEMATOCRIT 21.1 % (42.0-52.0); MCHC 29.4 g/dL (28.0-37.0); MCV 61.8 fL (80.0-100.0); WBC 6.7 thou/uL (4.0-11.0)
[2019-05-23 05:25] LABS: HEMOGLOBIN 6.2 gm/dL (14.0-18.0)
[2019-05-23 05:28] LABS: CALCIUM 7.4 mg/dL (8.5-10.1); CREATININE 0.8 mg/dL (0.7-1.3)
[2019-05-23 05:57] LABS: INR 2.3; PROTIME 24.2 Seconds (9.3-11.4)
[2019-05-23 07:25] VITALS: BP 126/76
[2019-05-23 09:01] VITALS: BP 106/65; BP 113/57; BP 98/68
[2019-05-23 10:05] LABS: % SATURATION 3 % (20-39); IRON 8 ug/dL (65-175); TIBC 281 ug/dL (250-450)
--- NOTE | 2019-05-23 11:09 | 2DMMODE ---
[address] [address] D/M-MODE ECHOCARDIOGRAM Name: STAR DEVLIN Room #: 206-P ADM IN .R.#: [id number] Admission: 05/21/19 Attend Phys: Luis Acevedo Discharge: Date of : 37 Report #: [id number] THIS REPORT FOR: //name// APPROVED REPORT Study performed: 05/23/2019 10:17:07 EXAM: Comprehensive 2D, Doppler, and color-flow Echocardiogram Patient Location: Bedside Room #: 206 Status: routine BSA: 2.20 HR: 73 bpm BP: 115/57 mmHg Rhythm: Pacemaker Other Information Study Quality: Good Indications ICD: Congestive Heart Failure Atrial Fibrillation Dyspnea CAD Cardiomyopathy 2D Dimensions IVC: 23.00 mm Tricuspid Valve TR Peak Quique.: 3.00 m/s TR Peak Gr.: 35.98 mmHg PA Pressure: 46.00 mmHg Left Ventricle The left ventricle is normal size. There is hypokinesis in the apical anterior wall. There is normal left ventricular wall thickness. Left ventricular systolic function is moderately decreased. LVEF is 35-40%. Right Ventricle Right ventricle is at the upper limits of normal. Device lead is present in the right ventricle. [address] [address] 2 D/M-MODE ECHOCARDIOGRAM Name: STAR DEVLIN Room #: 206-P ADM IN M.R.#: [id number] Admission: 05/21/19 Attend Phys: Luis Acevedo Discharge: Date of : 37 Report #: [id number] Atria Left atrium is dilated. Right atrium is dilated. Device lead is present in the right atrium. Aortic Valve The aortic valve is normal in structure. No aortic regurgitation is present. There is no aortic valvular stenosis. Mitral Valve The mitral valve is normal in structure. Mild to moderate mitral regurgitation. No evidence of mitral valve stenosis. Tricuspid Valve The tricuspid valve is normal in structure. There is mild to moderate tricuspid regurgitation. Estimated PAP 46 mmHg. There is moderate pulmonary hypertension. Pulmonic Valve The pulmonary valve is normal in structure. Great Vessels The aortic root is normal in size. IVC is dilated and collapses <50% with inspiration. Pericardium There is no pericardial effusion. <Conclusion> The left ventricle is normal size. There is normal left ventricular wall thickness. Left ventricular systolic function is moderately decreased. LVEF is 35-40%. Right ventricle is at the upper limits of normal. Device lead is present in the right ventricle. Left atrium is dilated. Right atrium is dilated. Device lead is present in the right atrium. The aortic valve is normal in structure. Mild to moderate mitral regurgitation. There is mild to moderate tricuspid regurgitation. Estimated PAP 46 mmHg. <ELECTRONICALLY SIGNED> By: Joe Johnson MD 05/23/19 1109 1109 Joe Johnson MD /PILAR
[2019-05-23 11:45] VITALS: BP 103/52
--- NOTE | 2019-05-23 12:58 | H ---
[facility] [place] [address] HISTORY AND PHYSICAL Name: STAR DEVLIN Room #: 206-P ADM IN M.R.#: [id number] Admission: 05/21/19 Attend Phys: Mitch Macario Discharge: Date of : 37 Report #: [id number] THIS REPORT FOR: //name// CC: Luis Chicas DATE OF SERVICE: 05/22/2019 ATTENDING PHYSICIAN: Dr. Chicas. CHIEF COMPLAINT: Shortness of breath. HISTORY OF PRESENT ILLNESS: The patient is an 83-year-old gentleman who came to the Emergency Room with 1-day history of increasing shortness of breath. He has had increasing lower extremity edema for about a week, but his breathing became worse yesterday. His family reports that he has only been urinating a very small amount per day. It appears at some point his diuretic was discontinued, which may have been related to some renal insufficiency. He has had no chest pain, productive cough or fever. PAST MEDICAL HISTORY: Ischemic cardiomyopathy, atrial fibrillation, history of sick sinus syndrome, tachy ad with ICD and pacer implant, coronary artery disease, history of PTCA, most recently 2008. He has had admissions for heart failure, hypertension, chronic Coumadin use. PAST SURGICAL HISTORY: Unremarkable. FAMILY HISTORY: Unknown. SOCIAL HISTORY: He lives at home. No current alcohol or tobacco use. He has a prior smoking history. ALLERGIES: HYDROCHLOROTHIAZIDE. MEDICATIONS: Coumadin 3 mg, quinapril 10 mg, Tylenol, Xanax 0.5 mg, aspirin 81 mg. REVIEW OF SYSTEMS: He denies headache, chest pain, abdominal pain, nausea, vomiting, diarrhea, constipation, dysuria, syncope. OBJECTIVE: VITAL SIGNS: Temperature 37, pulse 70, respirations 18, blood pressure 148/68, O2 sat 93% on 2 liters. GENERAL: He is awake and alert, sitting up in bed, in no distress. HEAD AND NECK: Unremarkable. LUNGS: Diminished in the bases. HEART: Irregular. Pacemaker left upper chest. [facility] [address] [place] [address] HISTORY AND PHYSICAL Name: STAR DEVLIN Room #: [address] [place] [address] IN M.R.#: [id number] Admission: 05/21/19 Attend Phys: Mitch Macario Discharge: Date of : 37 Report #: [id number] ABDOMEN: Soft, normoactive bowel sounds. EXTREMITIES: 1-2+ edema. NEUROLOGIC: Cranial nerves are intact. Global strength roughly 4/5 throughout. LABORATORY DATA REVIEW: Pertinent findings are BNP of 9500. Troponin negative. INR 3.5. Chest x-ray reveals pulmonary edema and small pleural effusions. ASSESSMENT: 1. Acute on chronic systolic heart failure. 2. Atrial fibrillation. 3. Ischemic cardiomyopathy. 4. Coronary artery disease. 5. Hypertension. 6. Anemia of chronic disease. 7. Hyponatremia due to #1. PLAN: He has responded well to IV diuretics overnight. Dr. Francisco is at the bedside to assess him as well and his usual medicines will be continued with Coumadin once his INR is in therapeutic range. He has requested do not resuscitate status. <ELECTRONICALLY SIGNED> By: Master Carroll MD 05/23/19 1258 [phone] Master Carroll MD /nt
[2019-05-23 15:50] VITALS: BP 118/62
[2019-05-23 17:10] LABS: HEMATOCRIT 25.8 % (42.0-52.0); HEMOGLOBIN 7.5 gm/dL (14.0-18.0)
--- NOTE | 2019-05-23 17:44 | NUR ---
ASSESMENT DOCUMENTED, VSS AND AFEBRILE. 1 UNIT OF RBC GIVEN, AND REACTON NOTED. PROGRESSING SLOWELY TOWARD GOALS AND WILL CONTINUE WITH POC.
[2019-05-23 20:00] VITALS: BP 112/50
[2019-05-24 05:11] VITALS: BP 130/56
[2019-05-24 05:26] LABS: CALCIUM 7.5 mg/dL (8.5-10.1); CREATININE 0.9 mg/dL (0.7-1.3); POTASSIUM 3.8 mmol/L (3.5-5.1)
[2019-05-24 05:28] LABS: INR 1.8; PROTIME 18.7 Seconds (9.3-11.4)
--- NOTE | 2019-05-24 05:46 | NUR ---
pt resting quietly in room thru the noc, forgetful and needs frequent reorientated, turning q 2hrs and prn, remains on 2l/nc and coarse cough producing thick green sputum, rodriguez with adequate amts of yellow urine, will con't to monitor per ppoc.
[2019-05-24 07:40] VITALS: BP 115/58
[2019-05-24 11:30] VITALS: BP 97/51
--- NOTE | 2019-05-24 15:24 | NUR ---
met with patient who is alert but appears weak. he reports he lives at home with caregivers. he has a ramp to home. He is currently on oxygen and does not use at home. Sp with friend Jessenia. She reports patient , no children. He has a friend/DPOA Mr Vergara who has some health issues of his own. Jessenia assists and arranged 24/ caregivers with [employer]. Jessenia reports patient rec HH via [facility] and worked well with therapy Jennifer the therapist. Discussed post acute care. Jessenia report they have tried before at [facility] and he does better at home. At this time plan home with cont caregivers and [facility] HH care.
[2019-05-24 15:40] VITALS: BP 111/58
--- NOTE | 2019-05-24 17:45 | NUR ---
ASSESSMENT CHARTED - MEDS PER BRICE - RASTA BREAKFAST WELL - TO HAVE EGD AND COLONOSCOPY IN THE AM - ON CLEAR LQUIDS SINCE LUNCH MEDS PER OCT - STARTED MIRILAX PREP ORDERED - GIVEN TYLENOL AND XANEX THIS AM FOR CO'S OF PAIN ON OVER - WITH NO FURTHER COMPLAINTS. PT TURNED IN BED. PT WITH PERIODS OF BEING VERY CONFUSED AND AXIOUS AT TIMES. NO CO'S AT THE PRESENT TIME APPEARS TO BE RESTING COMFORTABLY.
[2019-05-24 19:47] VITALS: BP 116/61
--- NOTE | 2019-05-24 23:53 | NUR ---
PATIENT CARES WERE ASSUMED AT SHIFT CHANGE. PATIENT WAS ASSESSED AND MEDS WERE PASSED. PATIENT WAS GIVEN A BOWEL PREP FOR A COLONOSCOPY IN THE MORNING DUE TO HEMATOCHEZIA. CONSENT SIGNED BY DAUGHTER WHO IS THE DPOA. PATIENT HAS HAD A STOOL VERY LARGE FIRST HALF OF THE SHIFT. WILL REPORT OFF IN THE MORNING IF THIS PATIENT IS CLEAR OR NOT. DAY SHIFT WILL OBTATIM MORE ORDERS. HOURLY ROUNDING WAS DONE. THE BED IS IN A LOW AND LOCKED POSITION.
[2019-05-25 03:20] VITALS: BP 113/54
[2019-05-25 05:25] LABS: HEMATOCRIT 25.2 % (42.0-52.0); HEMOGLOBIN 7.4 gm/dL (14.0-18.0); MCH 19.2 pg (26.0-34.0); MCHC 29.3 g/dL (28.0-37.0); MCV 65.5 fL (80.0-100.0); RBC 3.84 mil/uL (4.50-6.00); RDW 26.6 % (10.5-14.5); WBC 7.4 thou/uL (4.0-11.0)
[2019-05-25 05:40] LABS: CALCIUM 7.7 mg/dL (8.5-10.1); CREATININE 0.7 mg/dL (0.7-1.3); POTASSIUM 3.4 mmol/L (3.5-5.1)
[2019-05-25 05:51] LABS: INR 1.6; PROTIME 16.2 Seconds (9.3-11.4)
[2019-05-25 08:45] VITALS: BP 125/77
[2019-05-25 12:17] VITALS: BP 148/82
--- NOTE | 2019-05-25 16:30 | NUR ---
FAXED REFERRAL TO [facility] SPOKE WITH BASSAM SHE RECEIVED REFERRAL BUT PT IS ON SERVICE WITH [facility]. [facility] SPOKE WITH DIDIER IN INTAKE SHE CAN RESUME CARE AT [place]. DP TO FOLLOW.
--- NOTE | 2019-05-25 16:56 | NUR ---
ASSESSMENT CHARTED - MEDS PER OCT - PT NPO THIS AM DUE TO COLONOSCOPY AND EGD DONE THIS AFTERNOON. PT SLEEPY ON RETURN FROM GI LAB - WHEN HE WOKE UP HE WAS INSITING ON GOING HOME - BEING ARGUMENTATIVE WITH STAFF - YELLING OUT - ATTEMPTED TO RE-ORIENT. PT GIVEN XANEX AT THIS TIME DUE TO BEING SO ANXIOUS. SEEN BY PHYS AND OCC THERAPY THIS AM -DPOA IN TO SE PATIENT. PT APPEARS TO BE RESTING QUIETLY AT TH PRESENT TIME.
[2019-05-25 19:18] VITALS: BP 121/60
--- NOTE | 2019-05-26 02:27 | NUR ---
PATIENTS CARES WERE ASSUMED AT SHIFT CHANGE,PATIENT WAS ASSESSED AND MEDS WERE PASSED. THIS PATIENT ONCE AGAIN BECAME VERY CONFUSED AT NIGHT. PATIENT STATED HE WAS GOING TO CALL THE POLICE SO HE COULD GET OUT OF HERE. HOURLY ROUNDING WAS DONE. ALL FOUR RAILS UP FOR SAFETY. THE BED ALARM IS ON AND THE BED IS IN A LOW AND LOCKED POSITION
[2019-05-26 05:33] VITALS: BP 120/58
--- NOTE | 2019-05-26 05:33 | P ---
[facility] [place] [address] PROCEDURE REPORT Name: STAR DEVLIN Room #: 206-P ADM IN M.R.#: [id number] Admission: 05/21/19 Attend Phys: Mitch Macario Discharge: Date of : 36 Report #: [id number] THIS REPORT FOR: //name// CC: Jad Chicas DATE OF SERVICE: 05/25/2019 COLONOSCOPY WITH BIOPSIES He is a patient of Dr. Jad Chicas. INDICATION FOR PROCEDURE: This patient has a severe microcytic hypochromic anemia and he is iron deficient. Colonoscopy and EGD are being performed today to evaluate for possible etiologies of this anemia. Informed consent for this procedure was obtained prior to the administration of any medication. The risks of the procedure, which include bleeding, perforation, infection, complications of sedation and the possibility I could miss something, have been explained to the patient and he has indicated his consent by signing and his family member has also consented for him to have this procedure as he does have some dementia. Anesthesia kindly sedated this patient with propofol for this procedure. DESCRIPTION OF PROCEDURE: With the patient in the left lateral decubitus position, a digital rectal exam was performed and formed stool was palpated in the rectum. I could not palpate any masses. The rectal wall itself felt smooth. Then, the Olympus colonoscope was introduced through the anal sphincter and advanced carefully through the distal rectal stool collection without difficulty. I did not see any abnormalities in the rectum, but I could not get good visualization of the entire rectum because the stool was stuck to the rectal wall. The scope was then advanced under direct visualization to the terminal ileum. Findings were noted on withdrawal of the scope. The terminal ileal mucosa appears normal. Cecum, normal mucosa. Ileocecal valve, normal mucosa. Ascending colon, in the proximal ascending colon opposite the ileocecal valve, there is a deep ulcerated mass that appears to me to be malignant. Biopsies were obtained x 10 for histopathology. The mass is firm and difficult to biopsy because it is smooth in the center. Good hemostasis was noted after all biopsies. The remaining ascending colonic mucosa appears normal. Hepatic flexure, normal mucosa. Transverse colon, normal mucosa. Splenic flexure, some stool was retained in the splenic flexure, but I was able to wash it away with the scope and visualized this area adequately and it appeared normal. Descending colon, normal mucosa. Sigmoid colon, multiple uncomplicated diverticula are noted in the sigmoid colon. Rectum, a large amount of retained stool as mentioned previously is noted in the rectum. The visualized portions [address] [address] PROCEDURE REPORT Name: STAR DEVLIN Room #: 206-P ADM IN M.R.#: [id number] Admission: 05/21/19 Attend Phys: Mitch Macario Discharge: Date of : 36 Report #: [id number] of the rectum appeared normal. The stool was adherent to the rectal wall tightly and I cannot remove it or wash it away. Therefore, small mucosal lesions could have been missed, but there is no grossly enlarged lesion in this area that I can see. The scope was slowly withdrawn through the anal canal. No other abnormalities are seen. The scope was withdrawn. The patient went to the recovery area in stable condition. He tolerated the procedure well. Incomplete preparation of the rectum, there was a large amount of retained formed stool in the rectum and digital rectal exam did not reveal any distal rectal masses and I could not see any masses with the scope as far as I could see, but the stool was adherent tightly to the rectal wall, so it was difficult to try to remove it from the wall with our existing technology, so the scope was withdrawn. I do not think that there were any significant masses or significant lesions in the rectum, but small mucosal lesions could have been missed here. The patient went to the recovery room in stable condition. He tolerated the procedure well. IMPRESSION: 1. Ulcerated mass, proximal ascending colon as described above, biopsied x 10 for histopathology. It looks malignant. 2. Uncomplicated left-sided diverticulosis. 3. Poor colon prep in the rectum, so small mucosal lesions could have been missed, but digital rectal exam did not detect any masses here and what I was able to visualize, the rectum appears normal. RECOMMENDATIONS: My recommendations were first to await the biopsy results, obtain a CEA level. He may need revisualization just of the rectum if there is any problem above, but he will need to be much better prepped in order to see there adequately. If the biopsies do show malignancy and the patient is deemed to be a surgical candidate for resection of this lesion, I would proceed with CT scan of the chest, abdomen and pelvis for evaluation for possible metastatic disease. Thank you very much once again for allowing me to participate in his care, Dr. Chicas. <ELECTRONICALLY SIGNED> By: Brigida Prasad DO 05/26/19 0533 [id number] Brigida Prasad DO /nt
--- NOTE | 2019-05-26 05:33 | P ---
[facility] [place] [address] PROCEDURE REPORT Name: STAR DEVLIN Room #: 206-P ADM IN M.R.#: [id number] Admission: 05/21/19 Attend Phys: Mitch Macario Discharge: Date of : 37 Report #: [id number] THIS REPORT FOR: //name// CC: Jad Chicas DATE OF SERVICE: 05/25/2019 PROCEDURE: Diagnostic EGD. The patient of Dr. Jad Chicas INDICATION FOR PROCEDURE: The patient has a severe microcytic hypochromic anemia of undetermined etiology. EGD is being performed to evaluate for possible sources of the blood loss. Informed consent for this procedure was obtained from the patient's family member and from the patient. The risks of bleeding, perforation, infection, complications of sedation and the possibility I can miss something were explained to them and they have indicated their consent to proceed with EGD and colonoscopy. Anesthesia kindly provided deep sedation for both procedures. DESCRIPTION OF PROCEDURE: With the patient in the left lateral decubitus position, the Olympus upper videoscope was introduced through the upper esophageal sphincter and advanced under direct visualization to the third portion of the duodenum. Findings are noted on withdrawal of the scope. The visualized portion of the third portion of the duodenum appears normal. The second portion of the duodenum likewise appears normal. The duodenal bulb looks normal. Pylorus, normal mucosa. Antrum, there is some mild erythema in the antrum of the stomach. Body, normal mucosa. Cardia and fundus, normal mucosa. Retroflex view does reveal the presence of a small hiatal hernia. Mucosa in the hiatal hernia appears normal. The scope was withdrawn into the esophagus. 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 Biopsies were not obtained from this area for this purpose. The more proximal esophageal mucosa appears normal. I would say this is approximately a 2-3 cm segment of Rain's ectopic mucosa. The scope was withdrawn. The patient was turned for colonoscopy. IMPRESSION: 1. Normal duodenum and stomach. 2. Hiatal hernia. 3. 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 RECOMMENDATIONS: My recommendations are to proceed with colonoscopy at this [facility] [address] [place] [address] PROCEDURE REPORT Name: STAR DEVLIN Room #: 206-P [facility] IN .R.#: [id number] Admission: 05/21/19 Attend Phys: Mitch Macario Discharge: Date of : 37 Report #: [id number]. Thank you very much once again for allowing me to participate in his care. <ELECTRONICALLY SIGNED> By: Brigida Prasad DO 05/26/19 0533 [id number] Brigida Prasad /nt
[2019-05-26 05:40] LABS: CALCIUM 7.8 mg/dL (8.5-10.1); CREATININE 0.7 mg/dL (0.7-1.3); POTASSIUM 3.4 mmol/L (3.5-5.1)
[2019-05-26 05:43] LABS: INR 1.4; PROTIME 15.1 Seconds (9.3-11.4)
[2019-05-26 05:55] LABS: HEMATOCRIT 24.9 % (42.0-52.0); HEMOGLOBIN 7.3 gm/dL (14.0-18.0)
[2019-05-26 07:22] VITALS: BP 112/53
[2019-05-26 12:05] VITALS: BP 87/45
[2019-05-26 16:35] VITALS: BP 126/66
--- NOTE | 2019-05-26 17:03 | NUR ---
DR. FRIEDMAN ASSESS PT. WILL OBTAIN CONTRAST CT IN THE AM AND IN NO METS FROM COLON MASS WILL CONSIDER SURGICAL INTERVENTION. PT AND DPOA AWARE, WILL CONTINEU TO ASSESS.
[2019-05-26 19:52] VITALS: BP 101/48
--- NOTE | 2019-05-27 03:56 | NUR ---
ASSUMED CARE AT 1900. PT ALERT AND ORIENTED. NO PAIN REPORTED. VITALS STABLE. [place]EN[place] INTACT. ON IV LASIX. PT WAS NPO SINCE MIDNIGHT, PENDING CT OF ABDOMEN W/ CONTRAST THIS AM. PT CURRENTLY STABLE. NO FURTHER CONCERN REPORTED. WILL CONTINUE TO FOLLOW POC.
[2019-05-27 04:19] VITALS: BP 130/63
[2019-05-27 05:58] LABS: CALCIUM 8.1 mg/dL (8.5-10.1); CREATININE 0.8 mg/dL (0.7-1.3); POTASSIUM 3.9 mmol/L (3.5-5.1)
[2019-05-27 05:59] LABS: HEMATOCRIT 25.7 % (42.0-52.0); HEMOGLOBIN 7.7 gm/dL (14.0-18.0); INR 1.4; PROTIME 14.4 Seconds (9.3-11.4)
[2019-05-27 07:42] VITALS: BP 118/76
[2019-05-27 12:07] VITALS: BP 117/60
[2019-05-27 13:28] VITALS: BP 118/76
--- NOTE | 2019-05-27 13:29 | NUR ---
Plan of care pending biospy and CT results. [facility] can resume at dc by calling [phone] and fax orders [phone]. Friend Jessenia can coordinate for resumption of his private duty care and DPOA Mr. Ricksbs available via phone for any decision making or consents. Pt was restless yesterday. Friend at bedside today. Will follow.
--- NOTE | 2019-05-27 14:39 | NUR ---
Nutrition: Pt seen for weekend LOS. Admit with CHF, YASEMIN. S/P EGD/colonoscopy and colon mass found. Biopsy pending. PO intake 50-100% of meals. Pt reports decreased appetite earlier in admit-now improved-observed 95% intake today. Current weight reportedly at usual. Does have YASEMIN and is on lasix. S/P Fe+ infusion for Fe+ deficiency anemia. Fe-8. RD will offer Ensure daily for additional nutrition and in preparation for surgery next week.
--- NOTE | 2019-05-27 17:45 | NUR ---
ASSUMED CARE OF PT AT SHIFT CHANGE. ASSESSMENTS CHARTED.MEDS GIVEN PER OCT. PT ALERT AND ORIENTED TO SELF AND PLACE. FORGETFUL OF WHY IN HOSPITAL. REORIENTED FREQUENTLY. CT SCAN ABDOMEN THIS SHIFT-SEE RESULTS. SURGEON VISITED WITH PT, PLAN FOR PROCEDURE THURSDAY. O2 SATS WNL ON 2L O2. NO C/O SOB. PT BECAME ANXIOUS THIS AFTERNOON, XANAX ADMINISTERED PER OCT. PT MUCH MORE CALM FOLLOWING ADMINISTRATION. APPETITE ADQUATE THROUGHOUT SHIFT. CAREGIVER TAD VERY INVOLVED IN CARE OF PT. PT DENIES NEEDS AT THIS TIME. WILL CONT TO MONITOR PT, ASSESS NEEDS, FOLLOW POC.
[2019-05-27 20:45] VITALS: BP 111/58
--- NOTE | 2019-05-28 03:36 | NUR ---
PATIENT A/O X 2.FORGETFUL AND CONFUSED AT TIMES.BEDBOUND.REPOSITIONED Q2 HOURS AND NEEDED.O2 2L NC.TAKES OFF O2 AT TIMES.[place] TO DD.MONITOR SHOWS A PACED/V PACED RHYTHM.WILL MONITOR AND CONTINUE POC.
[2019-05-28 04:45] VITALS: BP 124/67
[2019-05-28 05:50] LABS: HEMATOCRIT 26.2 % (42.0-52.0); HEMOGLOBIN 7.7 gm/dL (14.0-18.0)
[2019-05-28 05:58] LABS: INR 1.3; PROTIME 13.4 Seconds (9.3-11.4)
[2019-05-28 06:10] LABS: CALCIUM 8.1 mg/dL (8.5-10.1); CREATININE 0.8 mg/dL (0.7-1.3); POTASSIUM 4.3 mmol/L (3.5-5.1)
[2019-05-28 08:20] VITALS: BP 118/69
[2019-05-28 11:41] VITALS: BP 102/54
[2019-05-28 13:59] VITALS: BP 104/65; BP 106/68; BP 108/78
[2019-05-28 16:00] VITALS: BP 107/70
--- NOTE | 2019-05-28 18:06 | NUR ---
ASSUMED CARE AT SHIFT CHANGE, ALERT AND PLEASANLEY CONFUSED. VSS AND DENIES CP. 1 UNIT OF RBC GIVEN PER ORDERS AND NO REACTION NOTED. ASSESSMNET DOCUMENTED AND WILL CONTINUE WITH POC.
[2019-05-28 19:27] VITALS: BP 113/60
[2019-05-29 04:29] VITALS: BP 126/75
--- NOTE | 2019-05-29 06:37 | NUR ---
PT RESTING QUIETLY IN ROOM THRU THE NOC, [place] CON'T TO DRAIN CLEAR YELLOW URINE, REPOSITIONED PT NEEDED, CLEANED UP AFTER LARGE BM, NO C/O PAIN, VSS, WILL CON'T TO MONITOR PER PPOC.
[2019-05-29 07:10] LABS: HEMATOCRIT 30.8 % (42.0-52.0); HEMOGLOBIN 9.2 gm/dL (14.0-18.0); MCH 21.1 pg (26.0-34.0); MCHC 29.8 g/dL (28.0-37.0); MCV 70.6 fL (80.0-100.0); RBC 4.35 mil/uL (4.50-6.00); RDW 31.4 % (10.5-14.5); WBC 8.5 thou/uL (4.0-11.0)
[2019-05-29 07:15] LABS: CALCIUM 8.5 mg/dL (8.5-10.1); CREATININE 0.9 mg/dL (0.7-1.3); POTASSIUM 4.5 mmol/L (3.5-5.1)
[2019-05-29 07:24] LABS: INR 1.2; PROTIME 12.8 Seconds (9.3-11.4)
[2019-05-29 07:40] VITALS: BP 123/64
[2019-05-29 12:41] VITALS: BP 96/51
[2019-05-29 17:13] VITALS: BP 120/61
[2019-05-29 20:00] VITALS: BP 104/58
[2019-05-30] VITALS (9 sets, daily range): BP systolic 100–134; BP diastolic 56–75
[2019-05-30 05:45] LABS: CALCIUM 8.7 mg/dL (8.5-10.1); CREATININE 0.9 mg/dL (0.7-1.3); POTASSIUM 4.7 mmol/L (3.5-5.1)
[2019-05-30 06:01] LABS: HEMOGLOBIN 9.5 gm/dL (14.0-18.0); MCH 21.4 pg (26.0-34.0); MCHC 29.8 g/dL (28.0-37.0); RBC 4.45 mil/uL (4.50-6.00); RDW 32.4 % (10.5-14.5); WBC 9.4 thou/uL (4.0-11.0)
--- NOTE | 2019-05-30 06:39 | NUR ---
ALERT WITH CONFUSION.REPOSITIONED Q2 HOURS AND NEEDED.O2 2L NC.DENIES PAIN.MONITOR SHOWS A PACED/AV PACED.WILL CONTINUE POC.
--- NOTE | 2019-05-30 12:05 | NUR ---
WOUND CONSULT; A WOUND WAS IDENTIFIED TO THE RLE CALF. THE WOUND HAS BRUISING THAT IS UNBLANCHABLE. MECHANICAL PRESSURE IS LIKELY WITH LINIAR LINES PRESENT AND OPEN AREAS SUGGESTIVE OF FRICTION. THE PATIENT WAS POSSIBLY LAYING ON SOMETHING TO CAUSE THIS. RECOMMENDATIONS; I WILL FOLLOW UP DAILY TO ASSESS THIS AREA AND MORE ACCURATLEY DETERMINE ETIOLOGY. FOR NOW FOAM AG TO WOUND BED, SECURE WITH A TUBIGRIP, M/W/F PRN DISCUSSED WITH STAFF
--- NOTE | 2019-05-30 14:06 | PATH ---
[facility] [place] [address] PATHOLOGY RPT PROCEDURE Name: STAR DEVLIN Room #: 206-P ADM IN M.R.#: [id number] Admission: 05/21/19 Date of : 37 Discharge: Report #: [id number] Path Case #: [id number] LCA Accession Number: [id number] . 01 Material submitted: . colon - BIOPSY ULCERATED MASS PROXIMAL ASCENDING COLON. Modifiers: proximal, ascending . 01 Clinical history: . Anemia, right colon mass, diverticulosis . 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 . (CLW:muna; 05/30/2019) QL 05/30/2019 1325 Local . 02 Comment: A properly-controlled immunohistochemical stain is performed. . Block A1 AE1/AE3: Reactive . Clinical and endoscopic correlation is recommended. The case is co-reviewed with Dr. Nicolas Dalal. The case is discussed with Dr. Clyde Bella on 05/30/19 at approximately 1:20 PM. . (CLW:muna; 05/30/2019) . 02 Electronically signed: . Mercedes Campos MD, Pathologist NPI- [id number] . 01 Gross description: . The specimen is received in formalin, labeled "Star Devlin, BX ulcerated mass ascending colon" (proximal, per requisition) and consists of multiple fragments of hedrick tissue measuring 1.5 x 0.3 x 0.2 cm in aggregate which are entirely submitted in A1. (SDY; 05/26/2019) SYU/SYU 05/30/2019 1129 Local . 02 Pathologist provided ICD-10: C18.2, D12.2, K63.3 . 02 [place] [address] PATHOLOGY RPT PROCEDURE Name: STAR DVELIN Room #: 206-P ADM IN M.R.#: [id number] Admission: 05/21/19 Date of : 37 Discharge: Report #: [id number] Path Case #: [id number] CPT . [id number], [id number] Specimen Comment: Report sent to Performed at: 01 [facility] [address], [place], [place] [id number] MD Naeem Leon MD Phone: [phone] Performed at: [address] [id number] MD Jocelyn Dubon MD Phone: [phone]
--- NOTE | 2019-05-30 16:08 | NUR ---
ASSESSMENT CHARTED- MEDS PER OCT - PT SEEN BY THERAPY THIS AM - PT NPO FOR SURGERY THIS AFTERNOON. PERMIT SIGNED BY CATHI - ANAY VOGT. PT FOUND TO HAVE AN AREA ON R LEG THAT IS OPEN / WEEPING DRAINING LONG AREA THAT APPEARS LIKE LEG HAS BEEN SCRATCHED. WOUND CO-ORDINATOR CONSULT PLACED AND PATIENT SEEN THIS AM PRIOR TO SURGERY - DRESSING PALCED. NO CO'S OF PAIN OR NAUSEA. PATIENT STARTED ON IRON IV THIS AM. PT TO DANY AT 1225 - HAS NOT RETURNED OF THIS TIME.
--- NOTE | 2019-05-30 18:24 | NUR ---
PT RETURNED FROM SSURGERY - ABDO WITH DRESSING / TEGADERM PRESENT AND 3 BANDAIDS FROM LAP SURGERY. PATIENT SLEEPY BUT EASILY AWOKEN. VSS. NO CO'S AT THE PRESENT TIME.
[2019-05-31 00:21] VITALS: BP 92/62
[2019-05-31 05:01] VITALS: BP 96/63
--- NOTE | 2019-05-31 05:08 | NUR ---
PT RESTING QUIETLY AFTER PAIN MED GIVEN AND TALKED TO DPOA ON PHONE, FORGETFUL AND NEEDS FREQUENT REORIENTATION, INCISIONS REMAIN CDI, PT PULLED BOTH PERIPHERAL SL OUT, RESTARTED 1 IN L FA AND WRAPPED WITH COBAN, REMAINS PACED ON TELEMETRY, PHOENIX DRAINING CLEAR YELLOW URINE, IV INFUSING AND PT REMAINS NPO, WILL CON'T TO MONITOR PER PPOC.
[2019-05-31 05:11] LABS: HEMOGLOBIN 9.5 gm/dL (14.0-18.0); MCH 21.6 pg (26.0-34.0); MCHC 29.6 g/dL (28.0-37.0); RBC 4.38 mil/uL (4.50-6.00); RDW 33.5 % (10.5-14.5)
[2019-05-31 05:12] LABS: CALCIUM 8.2 mg/dL (8.5-10.1); CREATININE 1.2 mg/dL (0.7-1.3); POTASSIUM 4.3 mmol/L (3.5-5.1)
[2019-05-31 08:20] VITALS: BP 85/57
--- NOTE | 2019-05-31 11:04 | HC ---
[facility] [place] [address] [address] [place] [address] CONSULTATION Name: STAR DEVLIN Room #: 206-P ADM IN M.R.#: [id number] Admission: 05/21/19 Attend Phys: Mitch Macario Discharge: Date of : 37 Report #: [id number] THIS REPORT FOR: //name// CC: Luis Chicas REASON FOR CONSULTATION: Right leg pain and edema. HISTORY OF PRESENT ILLNESS: The patient is an 83-year-old gentleman who was admitted to the hospital secondary to increasing shortness of breath and edema in the right lower extremity. Has been worked up for this and has been complaining of right leg pain in addition. 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
--- NOTE | 2019-05-31 11:04 | HC ---
[facility] [place] [address] [address] [place] [address] CONSULTATION Name: STAR DEVLIN Room #: 206-P ADM IN M.R.#: [id number] Admission: 05/21/19 Attend Phys: Mitch Macario Discharge: Date of : 36 Report #: [id number] THIS REPORT FOR: //name// CC: Luis Chicas DATE OF SERVICE: 05/29/2019 REASON FOR CONSULTATION: Right leg pain and swelling. HISTORY OF PRESENT ILLNESS: The patient is an 83-year-old gentleman who was admitted to the hospital for shortness of breath and leg edema. He has been complaining of right leg pain ____ including CT scan of his ____ and he is on the schedule for resection of this tomorrow with Dr. Bella. 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 We have been asked to evaluate his right lower extremity. He is about 6 or so weeks out from a right total knee arthroplasty performed by my partner, Dr. Andino. He does note a history of a fall back in November of this year; however, no x-rays of the hip were performed at that time. PAST MEDICAL HISTORY, MEDICATIONS, ALLERGIES: Have all been reviewed and are on the chart. PHYSICAL EXAMINATION: GENERAL: This is a somewhat confused gentleman, in no acute distress. EXTREMITIES: Examination of the right lower extremity shows him to have a well-healed knee incision from his previous knee arthroplasty. There are no signs of infection. There is moderate 2+ pitting edema of the lower leg. He holds the leg in external rotation and abduction. He does have pain with passive range of motion of the hip as well as the knee. He is neurologically intact distally. X-RAY EXAMINATION: AP pelvis and AP and lateral right hip shows displaced right femoral neck fracture that appears to be chronic in nature and there is possibility of a lytic lesion in the proximal femoral neck. Two view of the right knee shows him to have a right total knee arthroplasty in stable position. CT scan of the chest, abdomen and pelvis shows chronic femoral neck fracture versus pathologic femoral neck fracture. ASSESSMENT: Right displaced femoral neck fracture either chronic versus pathologic. PLAN: I spoke with Dr. Bella regarding this patient's treatment. Dr. Bella feels like treatment of his colonic mass should be the priority at this point and he is on the schedule for surgery for this tomorrow. He will need either a hemiarthroplasty versus a total hip arthroplasty on the right hip in a delayed fashion once he is medically stable from his colon resection. At that point, [place] [address] CONSULTATION Name: STAR DEVLIN Room #: 206-P ADM IN M.R.#: [id number] Admission: 05/21/19 Attend Phys: Mitch Macario Discharge: Date of : 37 Report #: [id number] the femoral neck as well as proximal femoral bone could be sent for pathology to determine the true nature of this fracture. I have discussed this case with Dr. Andino who did his knee replacement and he is in agreement. We will plan for delayed right hip hemiarthroplasty versus total hip arthroplasty once medically and surgically stable. Thanks for allowing us to participate in the care of the patient. <ELECTRONICALLY SIGNED> By: Bandar Jones MD 05/31/19 1104 1552 0043 Bandar Jones MD /nt
[2019-05-31 11:58] VITALS: BP 92/49
--- NOTE | 2019-05-31 14:33 | NUR ---
Spoke with Jessenia morillo Hip sx on Thursday. She reports patient does not want skilled so cont plan for home with [facility] at [facility]. [facility] likely to assist with transport to home.
[2019-05-31 17:02] VITALS: BP 99/64
--- NOTE | 2019-05-31 17:20 | NUR ---
FAXED CLINICAL UPDATE [facility] RECEIVED CONFIRMATION WILL F/U WITH THEM IN THE AM.
--- NOTE | 2019-05-31 18:03 | NUR ---
ASSESSMENT CHARTED - HAVE NOT GIVEN IV TOPROL THIS SHIFT DUE TO BP BEING LOW - GIVEN 1 DOSE OF MORPHINE FOR ANXIOUSNESS AND PAIN. PT HAS BEEN TURN - BOTTOM RED - PATIENT NOT LIKING TO BE ON SIDE BUT ENCOURAGED TO DO SO DUE TO BOTTOM. IV FLUIDS CONTINUE ORDERED - DR DAVIDSON IN THIS EVEINING TO SEE PATIENT - STATAED CLEAR LIQUID DIET COULD BE STRTED - GIVEN WATER AND ENCOURAGED NOT TO DRINK TOO QUICKLY. IF TOLERATED WILL GIVE JELLO ETC. NO CO'S AT THE PRESENT TIME.
[2019-05-31 19:56] VITALS: BP 101/64
[2019-06-01 03:52] LABS: CALCIUM 7.9 mg/dL (8.5-10.1); CREATININE 1.1 mg/dL (0.7-1.3); POTASSIUM 4.4 mmol/L (3.5-5.1)
[2019-06-01 04:17] VITALS: BP 94/56
[2019-06-01 04:24] LABS: HEMATOCRIT 30.7 % (42.0-52.0); HEMOGLOBIN 9.1 gm/dL (14.0-18.0); MCH 21.8 pg (26.0-34.0); MCHC 29.7 g/dL (28.0-37.0); MCV 73.4 fL (80.0-100.0); RBC 4.19 mil/uL (4.50-6.00); RDW 34.3 % (10.5-14.5); WBC 12.9 thou/uL (4.0-11.0)
--- NOTE | 2019-06-01 05:29 | NUR ---
ASSUMED PT CARE AT 1900 WITH NO SIGN OF DISTRESS NOTED IN PT, PT IS ALERT BUT CONFUSED. PT IS LAYING IN BED RESTING. FALL PRECAUTION IN PLACE. ASSESSMENT COMPLETED AND CHARTED. PT IS STABLE. Q2 TURNS ATTAINED. DENIES ANY FURTHER NEEDS AT THIS TIME.
[2019-06-01 08:00] VITALS: BP 96/62
--- NOTE | 2019-06-01 10:12 | NUR ---
WOUND CARE F/U; THE RIGHT LATERAL CALF WOUND HAS AREAS OF SKIN SLOUGHING CONSISTANT WITH MECHANICAL PRESSURE.. A SMALL AMOUNT OF CAPILLARY BLEEDING NOTED. RESOLVED QUICKLY. PINK WOUND BED. RECOMMENDATIONS; CONTINUE CURRENT TREATMENT FOR NOW. DISCUSSED WITH LAUREN
[2019-06-01 12:00] VITALS: BP 117/60
[2019-06-01 16:00] VITALS: BP 97/62
--- NOTE | 2019-06-01 16:51 | NUR ---
ASSUMED CARE OF PT AT SHIFT CHANGE. ASSESSMENTS CHARTED. MEDS GIVEN PER OCT. VSS. A&OX4 BUT FREQUENTLY CONFUSED. ON NC. NO C/O PAIN. PHOENIX IN PLACE. PLAN FOR HIP REPLACEMENT ON THURSDAY. WILL CONTINUE TO MONITOR AND FOLLOW POC.
[2019-06-01 19:21] VITALS: BP 89/46
[2019-06-01 22:51] LABS: HEMATOCRIT 30.7 % (42.0-52.0)
[2019-06-01 23:05] VITALS: BP 91/48
[2019-06-02] VITALS (9 sets, daily range): BP systolic 80–96; BP diastolic 43–60
[2019-06-02 02:12] LABS: HEMATOCRIT 30.4 % (42.0-52.0); HEMOGLOBIN 8.7 gm/dL (14.0-18.0)
--- NOTE | 2019-06-02 05:34 | NUR ---
ASSUMED PT CARE AT 1900 WITH NO SIGN OF DISTRESS NOTED IN PT. PT IS ALERT BUT CONFUSED. FALL PRECAUTION IN PLACE. ASSESSMENT COMPLETED AND DOCUMENTED, VITAL SIGNS IN PLACE WITH LOW BLOOD PRESSURE. UPON CHANGING AND CLEANING UP PATIENT, IT WAS NOTED THAT PATIENT HAD A BOWEL MOVEMENT WITH A QUITE A GOOD AMOUNT OF BRIGHT RED BLOOD. VITAL SIGNS TAKEN, BLOOD PRESSURE STABLE. ON-CALL GI DOCTOR (DR MAHONEY) WAS NOTIFIED, SHE ORDERED H&H Q4HRS TO BE TAKEN. IT WAS NOTED WITH H&H RESULT THAT HEMOGLOBIN LEVELS WERE STEADILY DECLINING. PHYISICIAN TO FOLLOW UP WITH PATIENT. PT STILL HAD ANOTHER EPISODE OF STOOOL WITH BLOOD IN IT. PT IS STABLE. ALSO, PT DEVELOPED A TEMP OF 100.0. MEDICATION ADMINISTERED FOR THAT. DENIES ANY PAIN, CONITNUE TO MONITOR.
[2019-06-02 06:15] LABS: HEMATOCRIT 27.4 % (42.0-52.0); HEMOGLOBIN 8.2 gm/dL (14.0-18.0)
[2019-06-02 09:25] LABS: HEMATOCRIT 30.6 % (42.0-52.0); HEMOGLOBIN 8.9 gm/dL (14.0-18.0)
--- NOTE | 2019-06-02 10:31 | NUR ---
CONSULTED TO PLACE A MIDLINE FOR A PATIENT NEEDING ADDITIONAL ACCESS. ORDER NOTED AND VERBAL CONSENT OBTAINED. THE LEFT UPPER ARM BASILIC WAS WIDLEY PATENT. A #4F POWER INJECTABLE MIDLINE WAS PLACED PER HOSPITAL POLICY. LINE WAS TRIMMED TO 12CM AND ADVANCED WITHOUT DIFFICULTY. BRISK BLOOD RETURN AND FLUSHED EASILY. LINE SECURED AND RELEASED FOR USE.
--- NOTE | 2019-06-02 14:22 | NUR ---
Case discussed with the care team. Hip surgery anticipated tomorrow;however pt had bloody stools overnight and getting 2units PRBC today. Uncertain if this will affect his surgical plans. Friend Jessenia at bedside. Will reassess his dc needs postop. Plan at this time is home with resumption of 24hr cg and HH per [facility].
[2019-06-02 16:35] LABS: HEMOGLOBIN 7.8 gm/dL (14.0-18.0)
--- NOTE | 2019-06-02 17:58 | NUR ---
ASSUMED CARE OF PT AT SHIFT CHANGE. ASSESSMENTS CHARTED EXCEPT FOR NOON, THE PT WAS OFF UNIT. PHOENIX IN PLACE. PT IS ALERT AND ORIENTED TO SELF. NO C/O PAIN. PT CONTINUED HAVING BLOODY STOOLS DURING THE DAY. HBG TRENDING DOWN, HGB 8.2, THEN 8.9, DR SANDS INFORMED, ORDERS RECEIVED TO HOLD ON BLOOD TRANSFUSION. PT WENT TO [facility] FOR GI SCAN WHICH WAS POSITIVE FOR BLEEDING. PT THEN WENT TO CT FOR ABDOMINAL SCAN TO DETERMINE SOURCE OF BLEED. DR DAVIDSON NOTIFIED OF PT RESULTS AND LABWORK. HGB 7.8, ORDERS RECEIVED TO PROCEED WITH TRANSFUSION OF 1 UNIT. NO ADVERSE REACTIONS. RECEIVED ORDERS PER DR DAVIDSON TO INFORM ORTHO OF HGB AND BLOODY STOOLS. THE SCHEDULED HIP REPLACEMENT SURGERY FOR TOMORROW HAS BEEN POSTPONED AND DR. SOLITARIO HAS CONFIRMED THAT DECISION. WILL CONTINUE TO MONITOR AND FOLLOW POC.
[2019-06-02 21:07] LABS: HEMATOCRIT 28.4 % (42.0-52.0); HEMOGLOBIN 8.7 gm/dL (14.0-18.0)
[2019-06-03 00:35] VITALS: BP 102/57
--- NOTE | 2019-06-03 03:42 | NUR ---
ASSESSMENT DOCUMENTED.PT BEEN RESTING IN NO ACUTE DISTRESS.A/O2-3 WITH PERIODS OF CONFUSION AND FORGETFULNESS.VSS.INCISIONS TO ABD INTACT,NO DRAINAGE OR ACTIVE BLEEDING NOTED.PHOENIX DD.NO BLOODY STOOLS NOTED THIS SHIFT.DENIES PAIN.POC TO CONTINUE TO MONITOR H&H.
[2019-06-03 03:55] VITALS: BP 81/46
[2019-06-03 06:29] LABS: ALBUMIN 2.1 g/dL (3.4-5.0); CALCIUM 7.9 mg/dL (8.5-10.1); CREATININE 1.1 mg/dL (0.7-1.3); TOTAL BILIRUBIN 0.7 mg/dL (<0.1-1.0); TOTAL PROTEIN 5.8 g/dL (6.4-8.2)
[2019-06-03 06:30] LABS: POTASSIUM 5.5 mmol/L (3.5-5.1)
[2019-06-03 09:43] VITALS: BP 121/73
[2019-06-03 10:46] LABS: HEMATOCRIT 29.1 % (42.0-52.0)
--- NOTE | 2019-06-03 11:29 | NUR ---
WOUND CARE FOLLOW UP; THE AREAS TO THE TIGHT LAT CALF IS VIRTUALLY HEALED. NO S/S OF INFECTION. THE PATIENT PATICIPATES IN HIS CARE AND SEEMS TO BE DOING WELL. RECOMMENDATION; CONTINUE CURRENT WOUND POC. DISCUSSED WITH RN
--- NOTE | 2019-06-03 13:06 | NUR ---
SW reviewed chart and spoke with nursing and attending physician. Pt's hip sx has been postponed due to drop in hemoglobin. No weekend discharge planned. MONIQUE is following to assist as needed with discharge planning.
--- NOTE | 2019-06-03 14:08 | NUR ---
PT OFF UNIT TO OR AT 1345.
--- NOTE | 2019-06-03 15:02 | O ---
[facility] [place] [address] [place] [address] OPERATIVE REPORT Name: STAR DEVLIN Room #: 206-P ADM IN M.R.#: [id number] Admission: 05/21/19 Attend Phys: Mitch Macario Discharge: Date of : 37 Report #: [id number] THIS REPORT FOR: //name// CC: Luis GORMAN MD PREOPERATIVE DIAGNOSES: 1. Anemia; colon cancer, ascending colon. Anemia likely secondary to gastrointestinal blood loss. 2. Cholecystitis with cholelithiasis. POSTOPERATIVE DIAGNOSES: 1. Anemia; colon cancer, ascending colon. Anemia likely secondary to gastrointestinal blood loss. 2. Cholecystitis with cholelithiasis. PROCEDURES PERFORMED: 1. Laparoscopic-assisted right colectomy. 2. Laparoscopic cholecystectomy. ANESTHESIA: General. COMPLICATIONS: None. ESTIMATED BLOOD LOSS: 25 mL. FINDINGS: The colon tumor is identified. It is in the proximal part of the ascending colon. Wide margins were obtained. The dissection was at the terminal ileum about 2 inches from the ileocecal valve and then about 2 inches beyond the hepatic flexure. Pathology evaluated the specimen grossly and the tumor is identified. PROCEDURE NOTE: With the patient under general anesthesia, abdomen was prepped and draped in sterile fashion. IV Zosyn was given. Abdomen was prepped and draped in sterile fashion. Timeout was performed. A Curvilinear incision was made infraumbilically. Fascia WAS identified. Fascia was then opened under visualization, 0 Vicryl suture placed on the fascia for retraction. Veress needle was then placed through the peritoneum. Abdominal cavity was insufflated with CO2. After creating pneumoperitoneum, 11-mm trocar was placed under visualization into the pneumoperitoneum. A 5 mm trocar was placed in high epigastrium and then another 5-mm trocar placed about 2 inches below the umbilicus. The right colon was identified, and the mass is seen in the anterior part of the colon about an inch and a half above the ileocecal valve. This portion of the colon is puckered and stiff and firm consistent with the primary tumor. The colon was mobilized without difficulty. The tissue was somewhat loose and easy to dissect. There was adhesion of the hepatic flexure to the [facility] [address] [address] OPERATIVE REPORT Name: STAR DEVLIN Room #: 206-P ADM IN M.R.#: [id number] Admission: 05/21/19 Attend Phys: Mitch Macario Discharge: Date of : 36 Report #: [id number] liver. These were taken down. There were some adhesions of fatty tissue adjacent to the gallbladder, likely from chronic cholecystitis. The colon was mobilized without difficulty. The proximal part of the omentum was free from the colon. Duodenum was visualized in almost entirety and preserved from harm. The mesoappendix was divided free the appendix mobilized with the colon. Small bowel was also mobile. Laparoscopic cholecystectomy was then performed. A third 5-mm trocar were placed in the right upper quadrant. I placed it right at the site where a small incision will be made to bring the colon out. The gallbladder was lifted cephalad. The peritoneum was dissected free over the triangle of Calot. The cystic artery was actually the most inferior structure. Cystic artery was identified. This was clipped x 2 proximally and 1 distally and then divided. The cystic duct was then isolated. Cystic duct gallbladder junction was identified. Cystic duct was then divided with 2 clips proximally and 1 distally and then divided. Gallbladder was freed from the liver bed without difficulty. The gallbladder was placed in a specimen bag. The specimen bag was left in the abdomen. A transverse incision, about 2 inches, was then made in the right upper quadrant. This was made right along the edge of the rectus muscle and going laterally into the first part of the lateral oblique muscle. The rectus muscle was not divided, was retracted medially. The posterior fascia was opened. The string on the specimen bag on the gallbladder was identified. The gallbladder was then extracted. The colon actually was able to be mobilized through the incision, and the entire specimen came out easily without any tension. Small bowel was divided with a PAWAN about an inch and a half from the ileocecal valve. The transverse colon side was also divided about 2 inches beyond the hepatic flexure. The main ileocolic vessel was identified. The small bowel mesentery was divided from the point of resection down to the base. The main vessels were clamped and then ligated with 2-0 Vicryl tie. The main artery supply was doubly ligated. Harmonic scalpel was used for part of the mesenteric dissection where there was no significant vessel. Specimen was then removed and given to the pathologist. Specimen was opened and the pathologist has confirmed the tumor, and I can actually feel the tumor when it was brought out. Tumor is about 3 cm in size. Good margins were obtained. There is a lymph node that was seen on CAT scan and the pathologist was able to find this close to the bowel wall. This is moderately suspicious. The terminal ileum was then brought together with the transverse colon. A 3-0 Vicryl suture was placed to bring the bowel together on the antimesenteric surface. The corner of the staple line was divided. PAWAN was put down in the limb of the small bowel and the colon. PAWAN was closed. PAWAN was then deployed creating a [id number] functional end-to-end anastomosis. The staple row was intact. No bleedings identified. The enterotomy was brought together with Allis and Farhad clamps. TA-55 was then placed underneath the Allis clamps. TA was closed and then deployed. The excess bowel along the other side of the staple was trimmed off. TA was opened. The crotch of the anastomosis reinforced. The anastomosis is patent, about 2.5 cm in size. The mesentery of the small bowel and the colon [address] [address] OPERATIVE REPORT Name: STAR DEVLIN Room #: 206-P ADM IN M.R.#: [id number] Admission: 05/21/19 Attend Phys: Mitch Macario Discharge: Date of : 36 Report #: [id number] was brought together with 3-0 Vicryl in running fashion. Anastomosis was intact. No bleeding identified. The anastomosis was dropped back through the fascia opening. The posterior layer was closed with 0 PDS in running fashion. The anterior layer was closed with a looped 0 PDS in running fashion. Skin was irrigated. Skin was closed with 4-0 PDS. Laparoscope was then placed. The liver bed was checked, hemostasis obtained. The anastomosis was also visualized. The omentum was placed over the anastomosis. Irrigation was performed. Irrigation was aspirated out. Trocars removed. CO2 was evacuated. The infraumbilical fascia defect was closed with [id number] 0 Vicryl x 2. Skin was irrigated. Skin was closed with 5-0 PDS. Steri-Strip, Band-Aids applied. A 4 x 4 and OpSite were used for the small incision. The patient tolerated the procedure well. <ELECTRONICALLY SIGNED> By: Clyde Bella MD 06/03/19 1502 [id number] Clyde Bella MD /nt
[2019-06-03 16:39] LABS: HEMATOCRIT 28.1 % (42.0-52.0); HEMOGLOBIN 8.6 gm/dL (14.0-18.0); MCH 23.2 pg (26.0-34.0); MCHC 30.5 g/dL (28.0-37.0); RBC 3.69 mil/uL (4.50-6.00); RDW 34.7 % (10.5-14.5); WBC 14.3 thou/uL (4.0-11.0)
--- NOTE | 2019-06-03 16:49 | NUR ---
PT RETURN TO UNIT WITH VALDO DRESSING RIGHT HIP ABD HEMOVAC IN PLACE. WILL CONTINUE TO ASSESS.
[2019-06-03 16:55] VITALS: BP 120/70
[2019-06-03 16:59] VITALS: BP 120/70
--- NOTE | 2019-06-03 18:38 | NUR ---
FREQUENT VITAL ON POST PROCEDURE FLOW SJEET IN CHART.
[2019-06-03 19:45] VITALS: BP 91/55; BP 94/63
[2019-06-04] VITALS: BP 91/48
--- NOTE | 2019-06-04 04:07 | NUR ---
ASSUMED CARE AT START OF SHIFT PT DROWSY BUT AROUSABLE WHEN NAME CALLED , VSS POST-OP. DENIES PAIN, TURNED EVERY 2 HOURS, VALDO DRESSING INTACT TO RIGHT HIP. MORPHINE GIVEN TIMES ONE AFTER PT MOAN AND GROAN WHEN TURNED, PAPER CUP HANDLE MACHINE OPERATOR SHOWS 100 V PACED ,02 APPLIED WHEN PT SAY DROPPED TO 89% ON ROOM AIR. WILL CONTINUE WITH CURRENT PLAN OF CARE.
[2019-06-04 04:37] VITALS: BP 105/70
[2019-06-04 05:33] LABS: HEMATOCRIT 26.4 % (42.0-52.0); HEMOGLOBIN 8.1 gm/dL (14.0-18.0); MCH 23.3 pg (26.0-34.0); MCHC 30.5 g/dL (28.0-37.0); MCV 76.1 fL (80.0-100.0); RBC 3.47 mil/uL (4.50-6.00); RDW 34.2 % (10.5-14.5); WBC 12.4 thou/uL (4.0-11.0)
[2019-06-04 07:33] VITALS: BP 93/62
[2019-06-04 11:20] VITALS: BP 104/60
[2019-06-04 15:33] VITALS: BP 88/59
--- NOTE | 2019-06-04 17:02 | NUR ---
ASSUMED CARE AT SHIFT CHANGE, ALERT BUT CONFUSED AND FORGETFULL. VPACED ON THE MONITOR, AFEBRILE AND BP STABLE. NORMA DRAIN REMOVED AND PATIENT TOLERATED PROCEDURE WELL. Q2 TURN. PHOENIX TO EDWARD. PATIENT BACK ON HEART HEALTHY AND HE TOLERATED DIET WELL. AND WILL CONTINUE WITH POC.
[2019-06-04 20:12] VITALS: BP 104/59
[2019-06-05 04:23] VITALS: BP 91/51
--- NOTE | 2019-06-05 04:53 | NUR ---
PT LYING IN BED. DENIES NEED FOR PAIN MEDICATION. RESTING COMFORTABLY. NO NEEDS VOICED. CALL LIGHT WITHIN REACH. WILL CONTINUE TO PROVIDE FREQUENT OBSERVATION.
[2019-06-05 06:10] LABS: HEMOGLOBIN 8.3 gm/dL (14.0-18.0); MCH 23.5 pg (26.0-34.0); MCHC 30.7 g/dL (28.0-37.0); MCV 76.4 fL (80.0-100.0); RBC 3.54 mil/uL (4.50-6.00); RDW 34.8 % (10.5-14.5); WBC 12.3 thou/uL (4.0-11.0)
[2019-06-05 06:30] LABS: POTASSIUM 5.1 mmol/L (3.5-5.1)
[2019-06-05 07:30] VITALS: BP 96/49
[2019-06-05 11:43] VITALS: BP 103/54
[2019-06-05 15:31] VITALS: BP 106/69
--- NOTE | 2019-06-05 18:23 | NUR ---
ASSESSMENT CHARTED, ALERT AND ORIENTED X3-4 AND FORGETFUL. Q2 HOURS POSITIONED FOR COMFORT, VPACED ON THE MONITOR, VSS AND AFEBRILE. ABD WOUND D/C/I, AND RT HIP DRESSING INTACT AND DRY. PROGRESSING SLOWELY AND WILL CONTINUE WITH POC.
[2019-06-05 19:27] VITALS: BP 77/65; BP 99/65
--- NOTE | 2019-06-06 02:49 | NUR ---
ASSUMED CARE OF PATIENT AT 1900. VSS, AFEBRILE. C/O SOME PAIN IN THE RIGHT HIP. DRESSING C/D/I. TURNED Q2. NO CONCERNS AT THIS TIME. GOAL IS TO BE UP TO CHAIR IN AM. RESTING WELL THROUGH THE NIGHT. PROGRESSING TOWARDS POC GOALS.
[2019-06-06 04:44] VITALS: BP 92/57
[2019-06-06 08:00] VITALS: BP 91/55
[2019-06-06 09:09] VITALS: BP 91/55
--- NOTE | 2019-06-06 09:52 | O ---
[facility] [place] [address] OPERATIVE REPORT Name: STAR DEVLIN Room #: 206-P ADM IN M.R.#: [id number] Admission: 05/21/19 Attend Phys: Mitch Macario Discharge: Date of : 37 Report #: [id number] THIS REPORT FOR: //name// CC: Luis Chicas DATE OF SERVICE: 06/03/2019 PREOPERATIVE DIAGNOSIS: Fracture, right femoral neck, possible pathologic fracture. POSTOPERATIVE DIAGNOSIS: Fracture, right femoral neck, possible pathologic fracture. PROCEDURE: Right proximal femoral hemiarthroplasty with cemented component. SURGEON: Master Andino MD INDICATIONS: Dr. Jones. INDICATIONS: This 83-year-old gentleman recently underwent right total knee arthroplasty for severe degenerative arthritis. He was then admitted to the hospital for rectal bleeding and found to have a colon cancer and underwent resection just several days ago. He also now complains of hip pain and x-rays confirm an obvious femoral neck fracture of indeterminate age. We discussed treatment options and elected to go ahead with surgical hemiarthroplasty of the right hip. This was discussed with my partner, Dr. Jones, as well as myself and we offered to press ahead whenever he was cleared following his recent colon surgery and some postoperative bleeding with anemia. He seemed to be stable today with stable hemoglobin of about 9. I think the patient and his durable power of insurance attorney understand well the diagnosis and treatment options and wished to proceed with a cemented hemiarthroplasty. DESCRIPTION OF PROCEDURE: The patient was taken to the operating room where he was placed under general anesthesia. Prophylactic intravenous antibiotics were administered. He was turned to the left lateral decubitus position. The right hip, thigh and leg were meticulously prepped and draped. A slightly curving posterolateral skin incision was made. This was carried through fascia and gluteus exposing the posterior aspect of the hip joint. Dissection was difficult as there was significant osteophyte formation and degenerative spurring as well as what clearly appeared to be a moderately chronic femoral neck fracture. The head and neck were visualized and the head was removed from the acetabulum and measured at 53 mm in diameter. There was some hypertrophic spurring and some osteophyte formation about the femoral neck and what appears to be a chronic fracture. This was trimmed down to the appropriate level of the canal, was opened with reamers and broaches. The size 13 broach seemed to fit most appropriately. The calcar was trimmed to an appropriate level to allow [facility] [address] [place] [address] OPERATIVE REPORT Name: STAR DEVLIN Room #: 206-P [facility] IN ..#: [id number] Admission: 05/21/19 Attend Phys: Mitch Macario Discharge: Date of : 37 Report #: [id number] some solid bony support. A trial reduction was performed and the -3 mm neck length combined with a 53-mm head size seemed to fit most appropriately. He was still somewhat tight as he had shortened up over time, I believe with this fracture, nevertheless the length seemed to be satisfactory. When compared with the opposite side, the hip seems to be stable. Once this was confirmed, the trial components were removed. The canal was prepared and a cement restrictor placed. Methyl methacrylate cement was mixed and injected into the canal. The Christian [employer] Nephew size 13 Synergy cemented stem was selected. This was placed into the canal at about 15-20 degrees of anteversion. Gentle pressure was held until the cement had fully hardened and the stem seemed stable. A trial reduction was again performed and again the 53 mm head with a -3 mm neck length seemed most appropriate. The trial component was removed and the permanent stainless steel unipolar 53 mm head with a -3 mm neck sleeve was selected. This was impacted on the Wright taper of the femoral component and seated nicely. The hip was reduced. Alignment, range of motion, stability and leg length seemed to be satisfactory. The short external rotators and capsule were then repaired back to bone using several #1 Tevdek sutures. A single Hemovac was left in the wound exiting through a separate stab incision. The fascia was closed with multiple #1 Vicryl sutures. Subcutaneous tissues were closed with 0 Monocryl. The skin was closed with skin marsha. A sterile dressing was applied. The patient was awakened and returned to recovery room in good condition. <ELECTRONICALLY SIGNED> By: Master Andino MD 06/06/19 0952 1547 1920 Master Andino MD /nt
[2019-06-06 10:00] LABS: HEMATOCRIT 27.4 % (42.0-52.0); HEMOGLOBIN 8.5 gm/dL (14.0-18.0); MCH 24.2 pg (26.0-34.0); MCV 78.1 fL (80.0-100.0); RBC 3.5 mil/uL (4.50-6.00); RDW 35.1 % (10.5-14.5); WBC 10.1 thou/uL (4.0-11.0)
[2019-06-06 10:09] LABS: CREATININE 1.1 mg/dL (0.7-1.3); POTASSIUM 4.9 mmol/L (3.5-5.1)
--- NOTE | 2019-06-06 10:43 | NUR ---
spoke with patient and discussed options of dc planning. Discussed skilled/post acute care. Patient wants to return home with 24/7 caregivers and HH care. Plan to f/u with Jessenia who assists with coordinating his affairs.
[2019-06-06] MEDS ORDERED: CARVEDILOL3.125 MG PO (12:50)
[2019-06-06] MEDS ORDERED: NORCO 7.5-3251 EACH PO (12:51)
[2019-06-06] MEDS ORDERED: PROTONIX40 M1 PO (12:51)
[2019-06-06] MEDS ORDERED: ACETAMINOPHEN325 M1 PO (12:51)
--- NOTE | 2019-06-06 13:51 | NUR ---
natan SY AND PATIENT CANDIDATE FOR 5N. PATIENT AGREEABLE TO TRANSFER TO 5N. 5N REPORTS PATIENT ACCEPTED FOR DC TODAY. DR SANDS AND TAD AGREEABLE WITH PLAN UPDATED RN.
--- NOTE | 2019-06-07 10:07 | PATH ---
[facility] [place] [address] PATHOLOGY RPT PROCEDURE Name: STAR DEVLIN Room #: [facility] IN M.R.#: [id number] Admission: 05/21/19 Date of : 37 Discharge: 06/06/19 Report #: [id number] Path Case #: [id number] [facility] Accession Number: [id number] . 01 Material submitted: . PART A: gallbladder - GALLBLADDER PART B: colon - RIGHT COLON. Modifiers: right . 01 Clinical history: . Colon cancer and cholecystitis . 02 Frozen section diagnosis: . INTRAOPERATIVE CONSULTATION: (Derian Campos M.D.) . B. "Right colon": - 3 cm ulcerated lesion in cecum with enlarged lymph node in pericolonic fat. . The case is discussed with Dr. Clyde Bella in the operating room and a written report is placed in the patient's chart. . . INTRAOPERATIVE CONSULTATION GROSS DESCRIPTION: A. Received fresh from the OR labeled "Star Devlin and right colon" is a right hemicolectomy specimen. The terminal ileum measures 4 cm in length by 1.0 cm in diameter. The cecum measures 19 cm in length by 2 cm in diameter. The serosal surface is hedrick-brown and smooth with a puckered area approximately 10 cm from the distal resection margin. The bowel is opened along the antimesenteric border to reveal a mucosal surface that is hedrick-brown and folded. Located 10.5 cm from the distal resection margin is a 2 x 3 cm ulcerated mass. An enlarged 1 cm lymph node is also identified in the pericolonic fat which is bisected. The specimen is displayed for Dr. Clyde Bella in the operating room and the case is discussed. The specimen is fixed in formalin. (CLW/db; 05/30/2019) . Intraopreative consultation performed at [facility], [address] [place] [address] , [place] [address]. JCW/MASHAQ . 02 Diagnosis: A. Gallbladder, cholecystectomy: - Mild chronic cholecystitis. - Cholelithiasis. - Reactive lymph node; negative for malignancy (0/). . B. 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 - POSITIVE FOR VISCERAL SEROSAL INVASION, PLEASE SEE SYNOPTIC REPORT. - THREE LYMPH NODES SHOWING METASTATIC ADENOCARCINOMA OF 15 LYMPH NODES (3/15);EXTRACAPSULAR EXTENSION IDENTIFIED MEASURING 1 MM BEYOND CAPSULE. - Margins free of malignancy; closest to distal margin is 10.5 cm away. - Additional tubular adenoma identified 1.5 cm distal to the ulcerated mass; negative for high-grade dysplasia. - Fibrous obliteration of the appendix; negative for malignancy. . (IUV:system manager; 06/02/2019) . . Surgical Pathology Cancer Case Summary . Protocol posting date: January 2017 . . COLON AND RECTUM: Resection, Including Transanal Disk Excision of Rectal Neoplasms . Procedure ___ Right hemicolectomy . Tumor Site ___ Right (descending) colon . Tumor Size Greatest dimension (centimeters): 3.0 cm . Macroscopic Tumor Perforation ___ Not identified . Histologic Type ___ Adenocarcinoma . Histologic Grade ___ G2- G3: Moderately to Poorly differentiated . Tumor Extension ___ Tumor invades the visceral peritoneum (including tumor continuous with serosal surface through area of inflammation) . Margins ___ All margins are uninvolved by invasive carcinoma, high-grade dysplasia, intramucosal adenocarcinoma, and adenoma Margins examined: Proximal and Distal. Distance of invasive carcinoma from closest margin: 10.[address] [address] PATHOLOGY RPT PROCEDURE Name: QUITASTAR Room #: 206-P DIS IN M.R.#: [id number] Admission: 05/21/19 Date of : 37 Discharge: 06/06/19 Report #: [id number] Path Case #: [id number] . Specify closest margin: Distal margin . Treatment Effect ___ No known presurgical therapy . Lymphovascular Invasion ___ Present . Perineural Invasion ___ Not identified . Tumor Deposits ___ Present . Regional Lymph Nodes . Number of Lymph Nodes Involved: 3 . Number of Lymph Nodes Examined: 15 . Pathologic Stage Classification (pTNM, AJCC 8th Edition) Note: Reporting of pT, pN, and (when applicable) pM categories is based on information available to the pathologist at the time the report is issued. . . Primary Tumor (pT) ___ pT4a: Tumor invades the visceral peritoneum (including tumor continuous with serosal surface through area of inflammation) . Regional Lymph Nodes (pN) ___ pN1: One to three regional lymph nodes are positive (tumor in lymph nodes measuring =0.2 mm), or any number of tumor deposits are present and all identifiable lymph nodes are negative . Distant Metastasis (pM) ___ pMx: Not known . Additional Pathologic Findings: Tubular Adenoma measuring 1.3 cm MBR 06/02/2019 1445 Local . 02 Comment: Per [facility] cancer committee protocol, MSI markers (4 immunohistochemical stain markers) are ordered on block B5. The results of these will be reported in an additional to follow. (IUV:system manager; 06/02/2019) . [address] [address] PATHOLOGY RPT PROCEDURE Name: STAR DEVLIN Room #: 206-P DIS IN M.R.#: [id number] Admission: 05/21/19 Date of : 37 Discharge: 06/06/19 Report #: [id number] Path Case #: [id number] Addendum: . This addendum is issued subsequent to reviewing properly-controlled immunohistochemical stains: . . MICROSATELLITE INSTABILITY REPORT (MSI): . Per [facility] Cancer Committee protocol, mismatch repair (MMR) protein immunohistochemical staining was performed: . Reason for testing: To evaluate for evidence of defective mismatch repair proteins. Method: Immunohistochemical staining for the presence or absence of protein expression of one or more of the following MMR protein markers: MLH1, MSH2, MSH6 and PMS2. Tumor type: Invasive adenocarcinoma . Results: MLH1 -Preserved MSH2 -Preserved MSH6 -Preserved PMS2 -Preserved . Mismatch Repair Status:MMR Proficient (MMR-P) . . Interpretation: (MMR-P) All four MMR proteins are preserved within tumor cells. This suggests the presence of normal DNA mismatch repair function within the tumor and an observable defect in mismatch repair is not identified. The likelihood that this patient has an inherited germline mutation syndrome due to defective mismatch repair is reduced but not totally eliminated. If the patient has a strong personal or family history of HPNCC/Martin syndrome related cancers (colorectal, endometrial, gastric, ovarian, pancreatic, ureter/renal pelvis, biliary tract, brain, small bowel and Alma-Darian syndrome), consider MSI testing by PCR methodology. Suggest clinical correlation and follow up. . These test results are designed for screening purposes only and are useful tools in identifying cancer patients that are more likely to have Martin Syndrome related diagnoses. Tests should be interpreted in the context of clinical findings, family history and laboratory data. Abnormal IHC results for MMR protein expression are not considered diagnostic for Martin Syndrome. . (IUV:mml; 06/06/2019) . . [facility] [address] [place] [address] PATHOLOGY RPT PROCEDURE Name: STAR DEVLIN Room #: 206-P DIS IN M.R.#: [id number] Admission: 05/21/19 Date of : 37 Discharge: 06/06/19 Report #: [id number] Path Case #: [id number] . Professional services performed by [employer] at [facility], [address] [address]. Technical services performed by [facility], [address] [place] [address], [address], [place] [address]. [facility]/06/06/2019 Addendum Electronically Signed by Jocelyn Dubon MD, Pathologist . 02 Electronically signed: . Jocelyn Dubon MD, Pathologist NPI- [id number] . 01 Gross description: . A. The specimen is received in formalin labeled "Star Devlin, gallbladder" and consists of a punctured green hedrick gallbladder measuring 6.3 x 2.8 x 1.3 cm. The gallbladder is encased with yellow adipose tissue. The margin is inked black. Opening reveals a lumen filled with green bile and multiple black gravel-like calculi measuring up to 0.6 cm. The mucosa is green and velvety with scattered yellow stippling and an average wall thickness of 0.1 cm. No masses are identified. Gun Stock Maker sections are submitted in A1-A2. . B. The puckered cecum serosa is inked black and sectioning through the mass reveals the mass obliterates the muscular wall with focal gross extension into the attached mesocolic tissue. 1.5 cm distal to the ulcerating mass is a sessile polypoid polyp measuring 1.3 x 0.7 cm. No additional polyps or mass lesions identified. Attached at the base of the cecum is the appendix measuring 4.5 cm in length and up to 0.5 cm in diameter. The tip is disrupted and sectioning reveals a pinpoint yellow-pink lumen. The ileocecal valve shows yellow adiposity. The mesocolic tissue reveals multiple lymph nodes/candidates measuring up to 1.4 cm. Gun Stock Maker sections are submitted as follows: . B1: Proximal margin B2: Distal margin B3-B4: Mass with gross extension into the mesocolic tissue B5-B6: Additional mass B7: Polyp adjacent mass B8: Fatty ileocecal valve B9: Appendix B10: 1 trisected lymph node B11: One serially sectioned lymph node B12: 2 bisected lymph nodes, one inked black B13: 6 intact lymph node candidates B14: 6 intact lymph node candidates (SDY; 05/31/2019) . B. SEE INTRAOPERATIVE CONSULTATION GROSS DESCRIPTION. . [address] [address] PATHOLOGY RPT PROCEDURE Name: STAR DEVLIN Room #: 206-P DIS IN M.R.#: [id number] Admission: 05/21/19 Date of : 37 Discharge: 06/06/19 Report #: [id number] Path Case #: [id number] After initial microscopic examination the fat is further examined revealing 7 small lymph node candidates measuring up to 0.3 cm which are entirely submitted in B15-B16. (SDY; 06/01/2019) BRITTNY/AMY 06/01/2019 1441 Local . 02 Pathologist provided ICD-10: K80.10, C18.6, D12.6 . 02 CPT . 520982, 886057, 944472, A62015, G42066 Specimen Comment: A courtesy copy of this report has been sent to Specimen Comment: [phone], . Specimen Comment: Report sent to / DR RAMÍREZ Performed at: [address] [facility], [place], [place] [id number] MD Naeem Leon MD Phone: [phone] Performed at: [address] [id number] MD Jocelyn Dubon MD Phone: [phone]
--- NOTE | 2019-06-07 16:06 | PATH ---
[facility] [address] [place] [address] PATHOLOGY RPT PROCEDURE Name: STAR DEVLIN Room #: 206-P DIS IN M.R.#: [id number] Admission: 05/21/19 Date of : 37 Discharge: 06/06/19 Report #: [id number] Path Case #: [id number] [facility] Accession Number: [id number] . 01 Material submitted: . femur - RIGHT FEMORAL HEAD. Modifiers: right, head . 01 Clinical history: . Right femoral neck fracture . 02 Diagnosis: Femur, right femoral head, hemiarthroplasty: - Intraparenchymal hemorrhage and reorganization of bone, compatible with the provided history of femoral neck fracture. - Negative for malignancy. (IUV:nurse auditor; 06/07/2019) MBR 06/07/2019 1317 Local . 02 Electronically signed: . Jocelyn Dubon MD, Pathologist NPI- [id number] . 01 Gross description: . Received in formalin labeled "Star Devlin, right femoral head," is a femoral head measuring 5.5 x 5.4 x 3.4 cm in greatest dimensions. The femoral neck is absent. The articular surface is smooth to granular and pale hedrick to hedrick-brown in appearance, displaying no gross evidence of eburnation. The bone margin is jagged, granular and pale hedrick to hemorrhagic in appearance. Serial sectioning reveals pale granular, yellow-hedrick to hemorrhagic cut surfaces, with multiple foci of hemorrhagic and partially friable bone underlying the articular surface. Tax Record Clerk sections of the bone margin are submitted in cassettes A1 and A2, following decalcification. Tax Record Clerk sections of the articular surface are submitted in cassette A3, following decalcification. (DAC; 06/06/2019) XMA/XMA 06/06/2019 0702 Local . 02 Pathologist provided ICD-10: S72.091A . 02 CPT . 580878, 099608 Specimen Comment: A courtesy copy of this report has been sent to Specimen Comment: [phone], , . Specimen Comment: Report sent to ,DR RAMÍREZ / DR SOLTIARIO Performed at: [address] [place] [address] PATHOLOGY RPT PROCEDURE Name: STAR DEVLIN Room #: 206-P DIS IN M.R.#: [id number] Admission: 05/21/19 Date of : 37 Discharge: 06/06/19 Report #: [id number] Path Case #: [id number] [address] [facility] [address], [place], [place] [id number] MD Naeem Leon MD Phone: [phone] Performed at: [address] [id number] MD Jocelyn Dubon MD Phone: [phone]
--- NOTE | 2019-06-08 09:15 | D ---
[facility] [place] [address] DISCHARGE SUMMARY Name: STAR DEVLIN Room #: 206-P [facility] IN M.R.#: [id number] Admission: 05/21/19 Attend Phys: Mtich Macario Discharge: 06/06/19 Date of : 37 Report #: [id number] THIS REPORT FOR: //name// CC: Luis Chicas DATE OF SERVICE: 06/06/2019 FINAL DIAGNOSES: 1. Acute on chronic systolic heart failure. 2. Chronic atrial fibrillation. 3. Microcytic anemia. 4. Lower gastrointestinal bleed. 5. Colon adenocarcinoma. 6. Right proximal femur fracture. 7. Critical illness myopathy. PROCEDURES: 1. EGD, colonoscopy. 2. Blood transfusion. 3. Right partial colectomy. 4. Right hemiarthroplasty. HOSPITAL COURSE: The patient was admitted with shortness of breath and initially treated for a heart failure exacerbation with diuretics, rate control and usual medications. He was followed by Dr. Real. He was found to have significant microcytic anemia, and heme and stools were checked. GI was consulted and a transfusion was ordered along with iron. He underwent EGD and colonoscopy, revealing a right-sided renal mass; eventually, biopsy showed adenocarcinoma. Dr. Bella was consulted, and a CT of the abdomen and pelvis was obtained. This subsequently showed a proximal right femur fracture. He was taken to the operating room by Dr. Bella for a right partial hemicolectomy; please see that operative note. He tolerated that procedure without incident. Dr. Jones was consulted in regards to the hip fracture. He did have an episode of lower GI bleed postoperatively, but it was felt this was related to the surgical site and Lovenox, which was subsequently discontinued. Hemoglobin remained stable and he had no other bleeding episodes. He ultimately was taken to the OR by Dr. Andino and had a right hemiarthroplasty. He tolerated that procedure without incident. DISPOSITION: He will be transferred to [address] [place] [address] Rehab. I have signed [facility] [address] [place] [address] DISCHARGE SUMMARY Name: STAR DEVLIN Room #: 206-P [facility] IN .R.#: [id number] Admission: 05/21/19 Attend Phys: Mitch Macario Discharge: 06/06/19 Date of : 37 Report #: [id number] off on his transfer, medications orders, physical and occupational therapy, and followup lab data. <ELECTRONICALLY SIGNED> By: Master Carroll MD 06/08/19 0915 1328 1404 Master Carroll MD /nt
--- NOTE | 2019-06-15 14:33 | HC ---
[facility] [place] [address] CONSULTATION Name: STAR DEVLIN Room #: 206-P [facility] IN M.R.#: [id number] Admission: 05/21/19 Attend Phys: Mitch Macario Discharge: 06/06/19 Date of : 36 Report #: [id number] THIS REPORT FOR: //name// CC: Luis Chicas DATE OF SERVICE: 06/06/2019 HISTORY OF PRESENT ILLNESS: The patient is an 83-year-old white male who was originally admitted to [facility] with increased shortness of breath, was noted to have an anemia, workup revealed a colon mass. He ended up undergoing a laparoscopic-assisted right colectomy along with the laparoscopic cholecystectomy on 05/30/2019. His course was complicated by his complaints of right leg pain. Upon evaluation of the CT of the pelvis. He was shown to have a chronic femoral neck fracture with proximal migration of the femur. He also has about 6 weeks or so out from a recent right total knee arthroplasty by Dr. Andino. The patient subsequently underwent a right proximal femoral hemiarthroplasty with cemented component on 06/03/2019. This was noted to be a right femoral neck fracture, possible pathologic fracture. The patient is allowed gentle weightbearing as he can tolerate. He has had a significant functional decline from his premorbid level and we are seeing him in rehabilitation medicine consultation. PAST MEDICAL HISTORY: Includes ischemic cardiomyopathy, atrial fibrillation, history of sick sinus syndrome, taking tachybrady with implantable cardiac defibrillator and pacer implant, coronary artery disease, history of PTCA. He has admissions for heart failure, hypertension, chronic Coumadin usage. PAST SURGICAL HISTORY: As noted above. He had a recent right total knee replacement approximately 6 weeks prior. MEDICATIONS: Please see the full medication listing. ALLERGIES: HYDROCHLOROTHIAZIDE. SOCIAL HISTORY: Lives in a house alone. He does have 24-hour caregivers; however, with [facility]. He has an involved durable power of assistant county attorney that checks in on him daily. He premorbidly was essentially nonambulatory, but got around in a wheelchair and was able to transfer himself to and from the wheelchair. The power of assistant county attorney, Jessenia helps arrange the 16/03 [facility]. He could previously scoot transfer himself. REVIEW OF SYSTEMS: No current complaints of chest pain, shortness of breath, abdominal discomfort. He did not utilize a Garrido catheter premorbidly, but had adult diapers. The power of assistant county attorney was in the process of getting him a [place] catheter. He did not have any problems with swallowing. He apparently had slow recovery post his right total knee arthroplasty. No headache. [address] [address] CONSULTATION Name: STAR DEVLIN Room #: 206-P [facility] IN M.R.#: [id number] Admission: 05/21/19 Attend Phys: Mitch Macario Discharge: 06/06/19 Date of : 36 Report #: [id number] PHYSICAL EXAMINATION: GENERAL: An 83-year-old white male, in no obvious distress. Decreased verbalizations appeared to be a somewhat limited historian tended to defer to his power of assistant county attorney. NEUROLOGIC: He is to have decreased insight into his deficits. HEENT: Facies were symmetric. EXTREMITIES: He has functional range of motion of both upper extremities. Strength is grade 4-/5. DTRs are trace to 1. ABDOMEN: He has the right abdominal incision. He has the indwelling Garrido catheter. Right hip is dressed. He has the recent healed right knee incision. No calf swelling. He has decreased range of motion of that right knee with gentle movement. He is unable to lift up that right lower extremity except for maybe a trace to 2- He can dorsiflex the ankle, probably a grade 3+, eversion is 3+. Left lower extremity strength is a little better at more of 3+ to 4-. Functionally, he was a difficult max assist, bed to chair transfers and is currently nonambulatory. ASSESSMENT: An 83-year-old white male with the following problem list: 1. Right chronic femoral neck fracture, status post right hip hemiarthroplasty 06/03/2019, allowed to be weightbearing as tolerated. 2. Colon cancer, status post laparoscopic right colectomy along with laparoscopic cholecystectomy on 05/30/2019. 3. Recent right total knee replacement approximately 6 weeks ago. 4. Premorbid wheelchair bound status, but was able to transfer himself. He has 24/7 caregivers. 5. Significant cardiac history as is noted. PLAN: The patient is a candidate for a short acute in-hospital inpatient rehabilitation stay to try to maximize his functional independence. The issue is that his transfers are much worse now than they were premorbidly. He now is a difficult max assist, which could be a challenge for the caregivers that were assisting him before. Previously, he had been able to scoot transfer himself. We would recommend a short rehabilitation stay to try to further improve his overall abilities with basic transfers and make it easier for the caregivers to try to assist him within the home setting. Discussion with the power of assistant county attorney. The patient does appear amenable in this regard. We will further look into rehab unit transfer issues in this regard. Thank you for asking us to assist in this patient's care. <ELECTRONICALLY SIGNED> By: Master Rosado MD 06/15/19 1433 1249 [id number] Master Rosado MD /nt
== END 2019-06-06 16:24 | DRG 329 ==
LOC: ER 14:18 → EROBS 16:43 → 2N 16:43
PROVIDERS: Anesthesiology; Emergency Medicine; Internal Medicine Gastroenterology; Internal Medicine Geriatric Medicine; Nurse Practitioner; Orthopaedic Surgery; Surgery; ADMIT Internal Medicine
PROC: 4B02XTZ Measurement of Cardiac Defibrillator, External Approach (ICD-10-PCS; principal; 2019-05-23)
PROC: 30233N1 Transfusion of Nonautologous Red Blood Cells into Peripheral Vein, Percutaneous Approach (ICD-10-PCS; principal; 2019-05-23)
PROC: 0DBK8ZX Excision of Ascending Colon, Via Natural or Artificial Opening Endoscopic, Diagnostic (ICD-10-PCS; 2019-05-25)
PROC: 0DJ08ZZ Inspection of Upper Intestinal Tract, Via Natural or Artificial Opening Endoscopic (ICD-10-PCS; 2019-05-25)
PROC: 0DTF4ZZ Resection of Right Large Intestine, Percutaneous Endoscopic Approach (ICD-10-PCS; 2019-05-30)
PROC: 0FT44ZZ Resection of Gallbladder, Percutaneous Endoscopic Approach (ICD-10-PCS; 2019-05-30)
PROC: 05HY33Z Insertion of Infusion Device into Upper Vein, Percutaneous Approach (ICD-10-PCS; 2019-06-02)
PROC: 0SRR019 Replacement of Right Hip Joint, Femoral Surface with Metal Synthetic Substitute, Cemented, Open Approach (ICD-10-PCS; 2019-06-03)
DX: C18.9 Malignant neoplasm of colon, unspecified (principal); S72.011A Unspecified intracapsular fracture of right femur, initial encounter for closed fracture; I50.23 Acute on chronic systolic (congestive) heart failure; E87.1 Hypo-osmolality and hyponatremia; D68.59 Other primary thrombophilia; K80.10 Calculus of gallbladder with chronic cholecystitis without obstruction; I48.91 Unspecified atrial fibrillation; I49.5 Sick sinus syndrome; D50.0 Iron deficiency anemia secondary to blood loss (chronic); I25.5 Ischemic cardiomyopathy; Z96.651 Presence of right artificial knee joint; D63.8 Anemia in other chronic diseases classified elsewhere; K57.30 Diverticulosis of large intestine without perforation or abscess without bleeding; K44.9 Diaphragmatic hernia without obstruction or gangrene; I11.0 Hypertensive heart disease with heart failure; F03.90 Unspecified dementia, unspecified severity, without behavioral disturbance, psychotic disturbance, mood disturbance, and anxiety; I25.10 Atherosclerotic heart disease of native coronary artery without angina pectoris; X58.XXXA Exposure to other specified factors, initial encounter; Y92.89 Other specified places as the place of occurrence of the external cause; Y93.89 Activity, other specified; Z79.1 Long term (current) use of non-steroidal anti-inflammatories (NSAID); Z79.899 Other long term (current) drug therapy; Z88.8 Allergy status to other drugs, medicaments and biological substances; Z86.73 Personal history of transient ischemic attack (TIA), and cerebral infarction without residual deficits; Y99.8 Other external cause status; Z79.82 Long term (current) use of aspirin; Z95.5 Presence of coronary angioplasty implant and graft; Z95.810 Presence of automatic (implantable) cardiac defibrillator; Z23 Encounter for immunization
CPT/HCPCS: 10081; 27000; 50010; 50101; 50249; 50382; 50411; 50414; 50555; 50558; 51057; 51130; 51225; 51226; 51390; 51391; 51412; 51435; 51489; 53000; 53078; 53307; 53310; 53312; 53335; 53369; 54118; 55245; 55317; 56460; 56462; 56521; 56524; 56525; 56526; 56527; 56528; 56530; 57095; 57103; 62110; 62900; 65020; 65040; 65090; 70005

== ENCOUNTER 2019-06-06 15:17 | Inpatient (IN) | payer OTHER, MEDICARE ==
[~2019-06-06] VITALS: Ht 188 cm; Wt 88.8 kg
[~2019-06-06 15:17] MED LIST changes: +CARVEDILOL3.125 MG PO; +NORCO 7.5-3251 EACH PO; +PROTONIX40 M1 PO
[2019-06-06 16:30] VITALS: BP 129/65
[2019-06-06 17:00] VITALS: BP 129/65
--- NOTE | 2019-06-06 17:01 | NUR ---
ASSUMED CARE PT AT SHIFT CHANGE. ASSESSMENTS CHARTED. MEDS GIVEN PER OCT. PT ALERT AND ORIENTED, VSS- BP SOFT. O2 SATS WNL ON ROOM AIR. NO SIGNS/SYMPTOMS OF BLEEDING NOTED. RIGHT HIP DRESSING CDI, NO C/O PAIN. PT WORKED WITH PHYS THERAPY TODAY, PER PHYS THERAPIST PT WAS DIFFICULT TRANSFER. ADMISSION TO REHAB ORDERS ACKNOWLEDGED AND IMPLEMENTED. REPORT CALLED TO 5N. PT LEFT UNIT AT APPROX 1600 WITH ALL BELONGINGS. TELE REMOVED. JOSE (PT DPOA) AWARE OF ADMISSION TO REHAB AND IN AGREEANCE.
[2019-06-06 19:38] VITALS: BP 97/58
--- NOTE | 2019-06-07 02:20 | NUR ---
ASSESSMENT: PT REMAIN ALERT AND ORIENT TIMES 1-2. FLAT AFFECT. NOT A GOOD HISTORIAN OF HIS PAST HEALTH AND ADMISSION PROCESS. DID NOT WANT TO SIGN PAPER WORK STATING THAT HIS AMBULANCE ATTENDANT, TAD, WILL SIGN THEM. ALL PAPER WORK PLACED IN FRONT OF THE CHART. WAS A NEW ADMIT AND CAME TO THE FLOOR AT APPROXIMATELY 1700, ACCOMPANIED BY STAFF MEMBERS COMING FROM 206. VALDO DRESSING INTACT. NO OTHER DRESSING NOTED ALTHOUGH IT WAS REPORTED THAT THERE WAS A TUBIGRIP DRESSING WITH FOAM AG TO THE RIGHT CALF. PT IS A CONFUSED AND PERHAPS HE REMOVED THE DRESSING BUT NOTHING WAS FOUND IN HIS BEDDING NOR ON THE FLOOR. LEFT SIDED PACE MAKER NOTED. LEFT UPPER ARM MIDLINE INTACT. IV TEAM NOTIFIED OF MIDLINE. SEE CHART. REFUSE PAIN MEDICATION. WBAT BLE. SLOW PROGRESS, WILL CONTINUE TO MONITOR.
[2019-06-07 05:59] LABS: HEMATOCRIT 25.3 % (42.0-52.0); MCH 24.6 pg (26.0-34.0); MCHC 31.5 g/dL (28.0-37.0); MCV 78.3 fL (80.0-100.0); RBC 3.23 mil/uL (4.50-6.00); RDW 35.7 % (10.5-14.5); WBC 9.6 thou/uL (4.0-11.0)
[2019-06-07 06:14] LABS: CALCIUM 7.6 mg/dL (8.5-10.1); POTASSIUM 4.9 mmol/L (3.5-5.1)
[2019-06-07 07:30] VITALS: BP 107/68
--- NOTE | 2019-06-07 10:00 | NUR ---
ASSUMED CARE OF PT AT 0715. PT IS A&OX3. IS ON ROOM AIR. IS STABLE. DENIES PAIN IN ABD, RIGHT HIP, & RLE WOUND. DRSGS C/D/I. IS UP WITH MAX ASSIST OF 2, GB, WALKER. FALL PRECAUTIONS & HOURLY ROUNDING CONTINUED THIS SHIFT. LABS & VITALS REVIEWED. [place] IN PLACE. PT IS ILIAMNA. WILL CONTINUE TO MONITOR.
--- NOTE | 2019-06-07 13:15 | NUR ---
team meeting, reccomendation: re team, cont to work with theapy.
[2019-06-07 13:32] LABS: INR 1.2; PROTIME 12.1 Seconds (9.3-11.4)
--- NOTE | 2019-06-07 20:39 | NUR ---
THIS NURSE DC'D ANNABELLA MIDLINE PER PICC PROTOCOL. TIP OF CATH WAS INTACT. PRESSURE APPLIED WITH GUAZE & TEGADERM. NOC NURSE TO DC [place] PER PROTOCOL.
[2019-06-07 22:39] VITALS: BP 102/52
--- NOTE | 2019-06-08 01:14 | NUR ---
PT ASSESSMENT DONE AND VSS. MED GIVEN AND WELL TOLERATED. FALL PRECAUTIONS IN PLACE. CONFUSED, CALLING OUT ABOUT STOCKS DURING THE NIGHT. SLEEPING ON/OFF. WILL CONTINUE TO MONITOR.
--- NOTE | 2019-06-08 01:18 | NUR ---
ADDITONAL NOTE---[place] D/C IN THE PM ORDERED. 250 ML OF URINE OUT IN THE CATHETHER. REMOVED PT JOGGING PANTS AT THAT TIME. PT WANTED TO KEEP HIS T-SHIRT/OVERHISRT ON.
[2019-06-08 05:40] LABS: INR 1.2; PROTIME 12.2 Seconds (9.3-11.4)
[2019-06-08 08:00] VITALS: BP 113/68
--- NOTE | 2019-06-08 10:08 | NUR ---
WHEN ASSISTING PT AFTER INCONTINENT BM THIS AM DURING ADL'S, NOTED THAT PT HAS DEEP RED AREAS AT COCCYX. BARRIER CREAM WAS APPLIED, AND PT HAS BEEN PLACED ON THE Q 2 HOUR TURNING PROTOCOL. NURSE SHERIDAN AGUILAR HAS BEEN INFORMED. SIGNS HAVE BEEN PLACED, PT EDUCATION HAS BEEN PROVIDED AND PT VERBALIZED UNDERSTANDING. CARE PLAN TO BE UPDATED. CESAR, PHYSICAL THERAPIST EVALUATED WC CUSHION, AND PT HAS GEL PRESSURE RELIEF SURFACE IN PLACE ALREADY. PT IS ABLE TO DEMONSTRATE PRESSURE RELIEF WHILE UP IN WC, BUT NEEDS ASSIST TO TURN WHILE IN THE BED TO MAINTAIN HIP PRECAUTIONS AND PREVENT DISLOCATION.
--- NOTE | 2019-06-08 15:09 | NUR ---
WOUND CARE FOLLOW UP; AN AREA TO THE COCCYX LIKEY FRICTION SHEARING, EVIDENCED BY FRAYED WOUND MARGINS. NO S/S OF INFECTION. THE PATIENT MENTAL STATUS HAS CHANGED SINCE LAST VISIT. RECOMMEDATION; 1-LOW AIR LOSS BED PUMP 2- HOB LESS THAN 30 DEGREES 3-ZGUARD TO AREA BID/PRN
[2019-06-08 19:39] VITALS: BP 113/62
--- NOTE | 2019-06-08 20:01 | NUR ---
ASSUMED CARE OF PT AT APPROX 0700. NAD NOTED DURING SHIFT. ASSESSMENT CAHRTED. UPON SKIN ASSESSMENT FOUND THAT PT HAD MULTIPLE SMALL WOUNDS ON BUTTOX AND SACRUM. EDUCATED PT ON FINDINGS AND THE IMPORTAMCE OF TURNING, BEING MOBILE AND EATING GOOD TO HELP PREVENT WORSENING AND MORE SKIN ISSUES. PICTURE TAKEN NO PICTURE OR DOCUMENTATION IS REGARDS TO THESE WOUNDS WERE FOUND. NOTIFIED DR, CONSULTED WOUNDS CARE. LOW AIRLOSS MATRESS PLACE. Q2 TURNS WHILE IN BED. PT COMMUNICATES UNDERSTANDING, BUT IS VERY FORGETFUL.
[2019-06-09 05:42] LABS: INR 1.2; PROTIME 12.5 Seconds (9.3-11.4)
--- NOTE | 2019-06-09 05:52 | NUR ---
ASSUMED CARE 06/08/19 AT APPROXIMATELY 1915, PATIENT IS IN BED UPON GREETING PATIENT. HE APPEARS WITH A DISHEVELED APPEARANCE AND IS DEMANDING AT TIMES. HE IS ALERT AND ORIENTED X1-2. HE APPEARS UNAWARE OF THE PROCEDURES HE HAS HAD DONE IN THE HOSPITAL AND STATES 'I CAN GET UP I HAD THESE DONE MONTHS AGO.' THIS NURSE ENCOURAGED HIM TO WAIT UNTIL PT CAN HELP WITH MOVEMENTS. HE APPEARS THAT HE DOES NOT UNDERSTAND. ALL LAPO SITES APPEAR INTACT WITH NO S/S OF INFXN, NO S/S OF DISTRESS NOTED. WILL CONTINUE HIP PRECAUTIONS TO ENSURE SAFETY.
[2019-06-09 09:18] VITALS: BP 111/69
--- NOTE | 2019-06-09 10:21 | NUR ---
WOUND CARE NOTE; PT IN BED, CONFUSED, DEMANDING AT TIMES, ALERT AND ORIENTED 1-2, BUT COOPERATIVE, WANTING ARM BANDS/BRACELETS TAKEN OFF RIGHT WRIST, INFORMED OF REASON TO LEAVE BRACELETS ON AND PT AGREED, SKIN TEAR NOTED RIGHT LOWER ARM, CLEANSED W/ NS, BORDER FORM DRSG APPLIED, SEE MEASUREMENTS UNDER PROCESS INTERVENTION, JOY LOADING MACHINE OPERATOR INFORMED OF CARE AND RECOMMENDATIONS
--- NOTE | 2019-06-09 11:58 | NUR ---
ALERT X1, IRRITABLE, DECLINES THERAPY, COMPLANTS REGARDING HOSPTAL BANDS IRRITATING SKIN -TUB LOWER SCHOOL MUSIC TEACHER PLACED TOLERATED. URINAL BEDSIDE SELF CARE, FALL PRECAUTIONS IN PLACE.
[2019-06-09 15:06] LABS: URINE BILIRUBIN NEGATIVE (Negative); URINE BLOOD NEGATIVE (Negative); URINE CLARITY CLEAR; URINE COLOR YELLOW; URINE GLUCOSE-RANDOM* NEGATIVE (Negative); URINE KETONES NEGATIVE (Negative); URINE LEUKOCYTES-REFLEX NEGATIVE (Negative); URINE NITRITE-REFLEX NEGATIVE (Negative); URINE PROTEIN (DIPSTICK) NEGATIVE (Negative); URINE UROBILINOGEN 0.2 E.U./dl (0.2-1.0)
[2019-06-09 19:44] VITALS: BP 104/65
--- NOTE | 2019-06-10 03:06 | NUR ---
ASSUMED CARE FROM DAY SHIFT PT YELLING OUT CONFUSED TO SITUATION AND SURROUNDING, PAIN MEDICATION GIVEN FOR COMFORT AND PT RESTED WELL THROUGHOUT HOURLY ROUNDS, WILL CONTINUE WITH CURRENT PLAN OF CARE AND WILL REPORT CHANGES OR ABNORMAL FINDINGS.
[2019-06-10 05:06] LABS: CALCIUM 7.7 mg/dL (8.5-10.1); CREATININE 1.1 mg/dL (0.7-1.3); INR 1.5; PROTIME 15.9 Seconds (9.3-11.4)
[2019-06-10 05:12] LABS: HEMATOCRIT 28.7 % (42.0-52.0); HEMOGLOBIN 8.8 gm/dL (14.0-18.0); MCH 24.3 pg (26.0-34.0); MCHC 30.6 g/dL (28.0-37.0); MCV 79.4 fL (80.0-100.0); RBC 3.61 mil/uL (4.50-6.00); RDW 35.7 % (10.5-14.5); WBC 7.4 thou/uL (4.0-11.0)
[2019-06-10 10:18] VITALS: BP 114/65
--- NOTE | 2019-06-10 12:06 | NUR ---
WOUND CARE NOTE; WOUND CARE TO SKIN TEAR ON RIGHT LOWER WRIST, HEALING, COOPERATIVE W/CARE, CONFUSED AT TIMES, SITTING UP IN CHAIR, UNABLE TO VIEW SACRAL AREA BUT ACCORDING TO NURSING STAFF HEALING, SEE PROCESS INTERVENTION FOR WOUND CARE/DETAILS, EXTRUDER OPERATOR MULTIPLE INFORMED OF CARE, PHOTO TAKEN TODAY RECOMMEND: CONT SAME TX
--- NOTE | 2019-06-10 15:29 | NUR ---
RESTLESS AND IRRITABLE IN AM-REQUESTING FREQUENT POSITION CHANGES STATING DOESN'T LIKE FOOD HERE-DOESN'T LIKE BED ETC-DID REPORT RIGHT HIP PAIN RATED A 7 ON 1-10 SCALE. NORCO7.5/325 PO PRN AT 1330 WITH COMPLETE PAIN RELIEF VERBALIZED-WAS ABLE TO WORK WITH THERAPY AFTER PAIN MED GIVEN. EPISODES OF CONFUSION-ASKING IF HE HAD ANY NEW MESSAGES BECAUSE HE "PUT IN A NEW SYSTEM" TODAY,
[2019-06-10 19:30] VITALS: BP 105/74
--- NOTE | 2019-06-11 03:51 | NUR ---
assumed care at approx 1900 evening 06/10. pt lying in bed with head of bed elevated. dressing to right hip c/d/i. pt incontinent of urine and assisted with changing of pad. pt with no hs meds scheduled. pt appears to be sleeping soundly with hourly rounding checks. bed alarm on and call light in reach. will continue to monitor.
[2019-06-11 07:45] VITALS: BP 119/82
--- NOTE | 2019-06-11 14:49 | NUR ---
AAOX1 NAME ONLY. CONFUSED TO WHY HE IS HERE. REMOVED VALDO BATTERY PACK. UP TO DINNING ROOM FOR MEALS, FAIR APPETITE. DENIES PAIN. ALPRAZOLAM GIVEN FOR IRRITABILY AND YELLING AT STAFF. AMBULATES WITH [facility]BA USING ROLLER WALKER. WEARS BRIEF FOR INCONTINENCE. SPOKE WITH FAMILY ON PHONE. REORIENTS BUT VERY FORGETFUL.
[2019-06-11 17:40] LABS: INR 1.8; PROTIME 18.3 Seconds (9.3-11.4)
[2019-06-11 19:34] VITALS: BP 103/70
--- NOTE | 2019-06-12 01:18 | NUR ---
assumed care at approx 1900 evening 06/11. pt lying in bed with head of bed elevated sleeping. pt with no hs meds. pt awoke approx 2200 incontinent of urine with linen change. pt alert and oriented upon awaking. pt hard of hearing. pt denies pain. pt appears to be sleeping soundly at present with hourly rounding. bed alarm on and call light in reach. will continue to monitor.
[2019-06-12 06:57] LABS: INR 1.9
[2019-06-12 10:18] VITALS: BP 117/66
--- NOTE | 2019-06-12 11:53 | NUR ---
ASSUMED CARE OF PT AT 0715. PT IS A&OX4. IS ON ROOM AIR. IS STABLE. DENIES PAIN TO RLE. DRSG INTACT. IS UP WITH MAX ASSIST OF 2 WITH SLIDE BOARD TRANSFER TO W/C. FALL PRECAUTIONS & HOURLY ROUNDING CONTINUED THIS SHIFT. PT IS TURNED Q2H WHILE IN BED. LABS & VITALS REVIEWED. Z-GUARD TO BOTTOM. LABS & VITALS REVIEWED. WILL CONTINUE TO MONITOR.
--- NOTE | 2019-06-12 13:11 | HC ---
[facility] [place] [address] CONSULTATION Name: STAR DEVLIN Room #: 512-P [facility] IN M.R.#: [id number] Admission: 06/06/19 Attend Phys: Master Rosado MD Discharge: Date of : 36 Report #: [id number] THIS REPORT FOR: //name// CC: Luis Treadwellnicole Master Rosado DATE OF SERVICE: 06/11/2019 NEUROBEHAVIORAL STATUS EXAM ATTENDING PHYSICIAN: Master Rosado MD GOVERNMENT DOCUMENTS LIBRARIAN: Donavan Quinn, PhD CLINICAL PRESENTATION: The patient is an 83-year-old male admitted to the [facility] Rehab Unit for comprehensive inpatient rehabilitation program to improve functional mobility, activities of daily living and self-care and mental status secondary to deficits from a chronic left femoral neck fracture, status post right hip hemiarthroplasty and weightbearing as tolerated. His assessment on the rehab unit included colon cancer, status post laparoscopic right colectomy along with laparoscopic cholecystectomy, recent right total knee replacement, premorbid wheelchair bound status, ischemic cardiomyopathy, history of atrial fibrillation, sick sinus syndrome, implantable cardiac defibrillator and pacemaker and coronary artery disease with a history of PTCA. He is reported to have 24/7 caregivers. A complete description of his medical condition and history can be found in his medical record. Neuropsychological consultation was requested to provide assistance in the assessment of cognitive and emotional status and to provide recommendations and services. Prior to this most recent admission, he was living at his home. He indicated having 24 hour assistance, however, he was uncertain about the extent of care that he was receiving. The patient reports that he was driving and managing medication and finances independently. However, medical records suggest assistance was being provided for medical services. The patient is with no children. He had one brother that is . He does not report a history of alcohol or drug abuse. 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 He indicates being a college graduate. TECHNIQUES UTILIZED: Clinical interview, review of medical records, staff consultation and behavioral observation, mini mental status exam 2 standard version, clock drawing and brief verbal fluency assessment ([facility] [address] [place] [address] CONSULTATION Name: STAR DEVLIN Room #: 512-P [facility] IN M.R.#: [id number] Admission: 06/06/19 Attend Phys: Master Rosado MD Discharge: Date of : 36 Report #: [id number] category). EXAMINATION FINDINGS: The patient was alert and cooperative with the assessment. He was accurate in the description of reason for his admission. However, he was vague about the extent of medical issues for which he is receiving treatment. He does not report difficulty with sleep, appetite, memory or word finding. His symptoms are described as pain, tiredness/fatigue and anxiety. He also reports his mood is more irritable. He denies subjective feelings of depression. His performance on the MMSE 2 brief version was extremely low with a raw score of 11, T score of 21 and percentile rank of less than 1. He was 3/3 for initial registration, 3/5 for orientation to time, 4/[address] and 1/3 for immediate recall of 3 items after a brief time delay and distraction. The patient indicates that the year is 1996. He was unable to give the date. He also indicated of the name of the hospital as [facility]. Performance on the MMSE 2 standard version was extremely low with a raw score of 20/30. He was 1/5 for serial sevens, 2/2 for naming, 1:1 for repetition. Auditory comprehension was 3/3. He could read and follow single command. The patient was able to write a sentence. He could not copy a simple geometric design. The patient was also unable to accurately draw a clock or place the hands at a designated time. Estimated category fluency is low average with a T score of 38 and percentile rank of 12. Estimated letter fluency was at the 10th percentile with a T score of 37. The patient is presenting with variability in orientation to time, immediate recall, attention/concentration and visual spatial construction. Deficits in executive functioning are also noted. Diminished thought organization, planning and problem solving are suggested. The patient has decreased insight into the extent of his deficits. DIAGNOSTIC IMPRESSION: Major neurocognitive disorder (dementia), unspecified, with intermittent irritability -- extent to be determined, likely in mild to moderate range. Unspecified anxiety disorder. RECOMMENDATIONS: The patient will continue to require 24-hour care. He will need assistance in the management of medication, finances and nutrition. If driving, that should be stopped until a more formal evaluation of neurocognitive functioning. However, his self report is of uncertain accuracy. Assistance with planning and problem solving will be necessary for him to [facility] [address] [place] [address] CONSULTATION Name: STAR DEVLIN Room #: 512-P [facility] IN ..#: [id number] Admission: 06/06/19 Attend Phys: Master Rosado MD Discharge: Date of : 36 Report #: [id number] maintain safety. He will also benefit in development of compensatory strategies for areas of decreased functioning. Thank you very much for allowing me to provide the consultation on this patient. <ELECTRONICALLY SIGNED> By: Donavan Quinn, PhD 06/12/19 1311 1506 17 Donavan Quinn, PhD /nt
[2019-06-12 19:10] VITALS: BP 86/57
--- NOTE | 2019-06-13 05:36 | NUR ---
PT REMAIN ALERT AND ORIENT TIMES 1-2 FORGETFUL AT TIMES. REFUSES TURNS OFTEN. VSS, AFEBRILE. NO BM THIS SHFT. SLOW PROGRESS, WILL CONTINUE TO MONITOR.
[2019-06-13 06:17] LABS: INR 2.3; PROTIME 24.1 Seconds (9.3-11.4)
[2019-06-13 08:22] VITALS: BP 123/81
--- NOTE | 2019-06-13 08:23 | NUR ---
ASSUMED CARE OF PT AT 0715. REPORTS SLEPT GOOD. PT IS A&OX3, FORGETFUL. VSS ON ROOM AIR. REASSESSMENT PER CHART. REPORTS LAST BM WAS YESTEREDAY. C/O SORE PAIN ON RIGHT LEG. BLE EDEMA 2+ ENCOURAGED PT TO WEAR TEDHOSE. LASIX 20MG GIVEN ORDERED. RATES RIGHT PAIN 3/10, GIVE PRN TYLENOL. ON RIGHT HIP PRECAUTION. HAS VALDO DRESSING ON RIGHT HIP/POSTERIOR THIGHT INTACT. HAD OLD DRAINAGE UNDERNEED. RIGHT LE RED DOTS DRY DRSG INTACT. LACERATION ON BUTTOCK, CLEANSED AND ZGUARD APPLY, ENCOURAGED PT TO TURN AT NIGHT. WILL ORDER LOWER LOSS MATRESS. IS UP WITH MAX ASSIST OF 2 WITH SLIDE BOARD TRANSFER TO W/C. OFFERED SUPPORTIVE CARE. DISCUSSED ABOUT CARE PLAN FOR TODAY AND ENCOURAGED PT TO VOICE HIS NEEDS. ASSISTED PT TO SIT UP RIGHT. PT IS EATING BREAKFAST AND WILL HAVE OT AT 0900 THIS AM. FALL PRECAUTIONS & HOURLY ROUNDING CONTINUED THIS SHIFT. PT IS TURNED Q2H WHILE IN BED. LABS REVIEWED. WILL CONTINUE TO MONITOR.
[2019-06-13 09:00] VITALS: BP 115/68
--- NOTE | 2019-06-13 09:53 | NUR ---
WOUND CARE NOTE skin tear right lower arm healing, care performed per orders, sacral wounds healing, cleansed w/ ns, zguard applied, see process interventions for wound details, medical staff director informed of care, recommend cont current tx
[2019-06-13 19:24] VITALS: BP 110/75
--- NOTE | 2019-06-13 23:06 | NUR ---
PT ASSESSMENT COMPLETED AND VSS. MEDS GIVEN ORDERED AND WELL TOLERATED. FALL PRECAUTIONS IN PLACE. PT VOIDING PER URINAL INDEPENDANTLY. ASST WITH REPOSITION FOR COMFORT. SLEEPING WELL. WILL CONTINUE TO MONITOR FREQUENTLY.
[2019-06-14 07:40] VITALS: BP 118/74
--- NOTE | 2019-06-14 11:13 | NUR ---
ASSUMED CARE OF PT AT 0715. NIGHT RN GAVE REPORT AND SAID PT HAS MORE CONFUSED AND RESTLESS LAST NIGHT, BUT ABLE TO CALM DOWN AND REST. PT HAS ATIVAN PRN BUT NIGHT RN DOESN'T WANT HIM MORE CONFUSE. LEGS SWELLING 2+. NOTIFIED DR. THRASHER. OBTAINED ORDER FOR ZOLOFT FOR ANTIDEPRESSION/ANXIETY, MELATONIN FOR SLEEP AND VENOUS DOPPLER FOR LEG EDEMA. WILL GIVE REPORT TO NIGHT NURSE TO CONTINUE TO MONITOR. SHIFT NOTE: VSS ON ROOM AIR. MORNING MEDS GIVEN. REASSESSMENT PER CHART. C/O SORE PAIN ON RIGHT LEG. PRN TYLENOL GIVEN. BLE EDEMA 2+ TEDHOSE ON LEFT LEG. RIGHT LEG APPLIED SKIN PREP AND TUBIGRIP. LASIX 20MG GIVEN ORDERED. CONTINUE TO BE ON RIGHT HIP PRECAUTION. HAS VALDO DRESSING ON RIGHT HIP/POSTERIOR THIGH. HAD OLD DRAINAGE UNDERNEED. RIGHT LE RED DOTS DRY DRSG INTACT. LACERATION ON BUTTOCK, CLEANSED AND ZGUARD APPLY IS BETTER NOW. CONTINUE TO BE LOWER LOSS MATRESS. IS UP WITH MOD ASSIST WITH SLIDE BOARD TRANSFER TO W/C. OFFERED SUPPORTIVE CARE. DISCUSSED ABOUT CARE PLAN FOR TODAY AND ENCOURAGED PT TO VOICE HIS NEEDS. PT WAS UP TO DINNING ROOM THIS AM FOR BREAKFAST. HAS GOOD APPETITE. FALL PRECAUTIONS & HOURLY ROUNDING CONTINUED THIS SHIFT.
--- NOTE | 2019-06-14 13:09 | NUR ---
TEAM MTG: PLAN TO RE-TEAM ON TU & DC ON 06/23 WITH SERVICES RN, PT,OT.
[2019-06-14 19:20] VITALS: BP 107/69
--- NOTE | 2019-06-14 19:28 | HC ---
[facility] [place] [address] [place] [address] CONSULTATION Name: STAR DEVLIN Room #: 512-P [facility] IN M.R.#: [id number] Admission: 06/06/19 Attend Phys: Master Rosado MD Discharge: Date of : 36 Report #: [id number] THIS REPORT FOR: //name// CC: Luis Rosado DATE OF SERVICE: 06/13/2019 CHIEF COMPLAINT: Abrasions to the right lower leg and sacral pressure ulceration. HISTORY OF PRESENT ILLNESS: This is an 83-year-old male patient who is seen on the rehab floor. He presented to the hospital from home originally with worsening shortness of breath and lower extremity edema, weight gain and was noted to have congestive heart failure. He was noted to have lower extremity abrasion apparently following a fall and then previous right hip fracture as well and still has a VALDO back in place on his right hip area. I have been asked to see him with regard to wound care. He cannot provide much information about himself, presumably due to underlying dementia. PAST MEDICAL HISTORY: Positive for history of ischemic cardiomyopathy, history of atrial fibrillation, sick sinus syndrome, status post ICD placement. He has a history of coronary artery disease, congestive heart failure, hernia, hypertension, previous right knee replacement. FAMILY HISTORY: Positive for heart disease and cancer. SOCIAL HISTORY: He is a previous smoker. No alcohol use. REVIEW OF SYSTEMS: Not obtainable as he is not able to answer any questions at this time due to some level of confusion. ALLERGIES: HYDROCHLOROTHIAZIDE. MEDICATIONS: Include Coreg, [place], Protonix, aspirin, alprazolam. PHYSICAL EXAMINATION: VITAL SIGNS: At this time include temperature 36.6, pulse 74, respiratory rate 20, blood pressure 115/68. GENERAL: This is a chronically ill-appearing male patient who appears to be in minimal distress. HEENT: Head normocephalic. Nose and throat are clear. NECK: Supple. LUNGS: Clear. HEART: Irregular without murmur. ABDOMEN: Soft and nontender. There are abrasions to his right lateral lower [facility] [address] [place] [address] CONSULTATION Name: STAR DEVLIN Room #: 512-P [facility] IN M.R.#: [id number] Admission: 06/06/19 Attend Phys: Master Rosado MD Discharge: Date of : 36 Report #: [id number] leg. These appear to be in stages of healing. He has a stage 2 pressure ulceration to the sacral region that is relatively small. He has a VALDO VAC to his right hip area. CLINICAL IMPRESSION: 1. Abrasions to the right lower extremity. 2. Stage 2 sacral pressure ulceration. 3. Recent right femoral neck fracture, status post hemiarthroplasty. 4. Recent right total knee replacement approximately 6 weeks ago. 5. Congestive heart failure. 6. Anxiety. 7. Hypertension. RECOMMENDATIONS: At this point in time, we will recommend barrier cream to the sacral pressure ulceration, low air loss mattress, q. 2 hour turning positioning while in bed. He will need aggressive nutritional support. We will recommend topical skin prep to the healing abrasions to the lower leg as well as Tubigrip stocking for edema control. We will leave the VALDO VAC in place until the battery runs low, at which point we will change to a more conventional dressing. I appreciate being asked to see him in consultation. <ELECTRONICALLY SIGNED> By: Lauri Hernandez MD 06/14/191927 11 Lauri Hernandez MD /nt
--- NOTE | 2019-06-14 23:22 | NUR ---
PT ASSESSMENT COMPLETED AND VSS. MEDS GIVEN ORDERED AND WELL TOLERATED. FALL PRECAUTIONS IN PLACE. VOIDING MODERATE AMOUNT OF DARK YELLOW URINE. ASSISTED WITH FREQUENT REPOSITION USING PILLOWS FOR COMFORT. SLEEPING MEDICATION WORKING WELL. WILL CONTINUE TO MONITOR FREQUENTLY.
[2019-06-15 06:09] LABS: HEMATOCRIT 30.3 % (42.0-52.0); HEMOGLOBIN 9.3 gm/dL (14.0-18.0); MCH 25.1 pg (26.0-34.0); MCHC 30.9 g/dL (28.0-37.0); MCV 81.3 fL (80.0-100.0); RBC 3.72 mil/uL (4.50-6.00); WBC 8.1 thou/uL (4.0-11.0)
[2019-06-15 06:22] LABS: CALCIUM 7.7 mg/dL (8.5-10.1); POTASSIUM 4.1 mmol/L (3.5-5.1)
[2019-06-15 06:33] LABS: INR 3.9
[2019-06-15 08:15] VITALS: BP 111/75
--- NOTE | 2019-06-15 11:45 | NUR ---
cm visited with pt and friend sky rt dcp, both agree with dcp, " i have already notified [facility] and will use [facility] that he had in past. they worked well with him"/friend sky.
--- NOTE | 2019-06-15 13:58 | NUR ---
DISCHARGE PLANNING. ANTICIPATED DISCHARGE 06/23 PER UNIT SECURITY SYSTEMS INTEGRATOR. PATIENT DISCHARGING TO HOME WITH HOME HEALTH SERVICES. REFERRAL FAXED TO [facility] PER PATIENT REQUEST. CALL RECEIVED FROM [facility]TA[facility]. ACCEPTING OF PATIENT AT DISCHARGE. [facility] WILL FACILITATE PATIENTS HH NEEDS ONCE DISCHARGE ORDERS RECEIVED. FOLLOWING.
[2019-06-15 17:46] VITALS: BP 117/66
--- NOTE | 2019-06-15 18:48 | NUR ---
ASSUMED CARE OF PT AT 0715. PT IS A&OX4 WITH SOME PERIODS OF FORGETFULNESS, VITAL SIGNS ARE STABLE. DRESSINGS CHANGED THIS SHIFT PER ORDERS. +3 EDEMA BLE. PT REFUSES ABDUCTOR PILLOW. DENIES PAIN AND PARTICIPATED IN THERAPIES. FALL PRECAUTIONS IN PLACE AND NURSING WILL CONTINUE TO MONITOR.
[2019-06-15 19:30] VITALS: BP 102/65
--- NOTE | 2019-06-16 02:08 | NUR ---
ASSESSMENT: PT REMAIN ALERT AND ORIENT TIMES THREE. FLAT AFFECT APPEARANCE. VSS, AFEBRILE. REFUSES TURNS MOST OF THE TIMES, ABLE TO TURN SELF NEEDED. DENIES PAIN, SOB AND N/V. FORGETFUL AT TIMES, ABLE TO LET NEEDS BE KNOWN. STERI-STRIPS INTACT ON ABD. VALDO DRESSING INTACT, CHANGED TO A ISLAND DRESSING. LE EDEMATOUS. SLOW PROGRESS TOWARDS DC GOALS, WILL CONTINUE TO MONITOR.
[2019-06-16 05:45] LABS: INR 4.3
[2019-06-16 10:51] VITALS: BP 113/72
--- NOTE | 2019-06-16 14:09 | NUR ---
ASSUMED CARE OF PT AT 0715. PT IS A&OX3-4, FORGETFUL, VITAL SIGNS STABLE. DENIES PAIN AND IS PARTICIPATING IN THERAPIES. DRESSINGS CHANGED PER ORDERS. CALLING APPROPRAITELY FOR ASSISTANCE. FALL PRECAUTIONS IN PLACE AND NURSING WILL CONTINUE TO MONITOR.
[2019-06-16 19:44] VITALS: BP 113/78
--- NOTE | 2019-06-16 19:45 | NUR ---
USING URINAL BY PULLING BRIEF TO THE SIDE. PILLOW TO BACK TO TURN TO LEFT SIDE. DECLINED COLACE DUE TO RECENT BM AND IS INCONTINENT OF BM
[2019-06-17 04:29] LABS: INR 3.9; PROTIME 40.7 Seconds (9.3-11.4)
[2019-06-17 04:31] LABS: CALCIUM 7.7 mg/dL (8.5-10.1); POTASSIUM 3.6 mmol/L (3.5-5.1)
--- NOTE | 2019-06-17 06:14 | NUR ---
ASSESSMENT: PT REMAIN ALERT AND ORIENT TIMES THREE, FORGETFUL. PT HAS SNIFFLES AND A PRODUCTIVE COUGH. PT ACT IF HE HAS COMTACTED A COLD. SLEPT OF AND ON DURING THE NIGHT.
[2019-06-17 09:43] VITALS: BP 114/69
[2019-06-17 19:58] VITALS: BP 109/64
--- NOTE | 2019-06-17 21:36 | NUR ---
ASSUMED CARE OF PT AT 0715. PT IS A&OX4 AND VITAL SIGNS ARE STABLE. PT REPORTS "SCRATCHY THROAT AND STUFFY NOSE". DENIES PAIN AND PARTICIPATED IN THERAPIES. +3 PITTING EDEMA TO BLE. ONE TIME DOSE OF FUROSEMIDE ADMINISTERED. DAILY WEIGHTS. FALL PRECAUITONS IN PLACE AND NURSING WILL CONTINUE TO MONITOR.
--- NOTE | 2019-06-18 04:12 | NUR ---
assumed care at approx 1900 evening 06/17. pt lying in bed with head of bed elevated resting and dozing off and on. pt hard of hearing and sometimes irritable and frustrated when he cannot hear. pt given much emotional support. pt voiding per urinal and alsoi incontinent at tines of urine. pt also incontinent of bm this shift, small, soft, formed. pt appears to be dozing off and on. bed alarm on and call light in reach. will continue to monitor.
[2019-06-18 05:11] LABS: INR 3.2; PROTIME 33.3 Seconds (9.3-11.4)
[2019-06-18 07:46] VITALS: BP 123/83
--- NOTE | 2019-06-18 11:37 | NUR ---
ASSUMED CARE OF PT AT 0715. NIGHT NURSE SAID PT DIDN'T SLEEP GOOD, BUT PT SAID HE WAS RESTED. PT IS A&OX4 WITH SOME PERIODS OF FORGETFULNESS, VITAL SIGNS ARE STABLE. DENIES PAIN. TURN Q2HR WHILE IN BED. WENDIE INTACT. DRESSINGS CHANGED THIS SHIFT PER ORDERS. +3 EDEMA BLE, CONTINUE TO BE ON LASIX 40MG DAILY. TUBIGRIP ON RIGHT LEG AND KAT HOSE ON LEFT LEG. PT REFUSES ABDUCTOR PILLOW. DENIES PAIN. OFFERED SUPPORTIVE CARE. ENCOURAGED PT TO GET UP TO DINNING ROOM FOR LUNCH. REASSESSMENT PER CHART. PT HAS INCONT BM ONE TIME. HAD LARGE BM. ABLE TO URINAL AT BEDSIDE WITH BARBER COLOR. FALL PRECAUTIONS IN PLACE AND NURSING WILL CONTINUE TO MONITOR.
[2019-06-18 20:00] VITALS: BP 102/64
--- NOTE | 2019-06-19 02:56 | NUR ---
assumed care at approx 1900 evening 06/18. pt lying in bed with head of bed elevated dozing off and on. pt awoke for hs meds and has been sleeping soundly tonight. pt voiding small amts per urinal. dressing to right hip c/d/i. bed alarm on and call light in reach. will continue to monitor.
[2019-06-19 05:12] LABS: INR 2.4; PROTIME 25.4 Seconds (9.3-11.4)
[2019-06-19 08:15] VITALS: BP 118/77
--- NOTE | 2019-06-19 12:29 | NUR ---
PT RESTING IN BED EATS VERY LITTLE AND REFUSING ENSURE. NO PAIN OR RESP DISTRESS. THERAPY WORKED WITH PATIENT THIS AM. PT IS VERY [place].
[2019-06-19 20:27] VITALS: BP 108/73
--- NOTE | 2019-06-20 02:08 | NUR ---
PATIENT ASSESSED AND IS ALERT X 4. SKIN WARM AND DRY. RESP EVEN AND UNLABORED. PATIENT HAS A DRESSING ON RIGHT HIP DUE TO A REPAIR FRACTURE. ALSO HAD A HEALED REPAIR NEW RIGHT KNEE CAP.IS VERY [place] AND GRUMPY AT TIMES. NEEDS TO HAVE DR REMOVE WENDIE ON RIGHT HIP. IS ON ROOM AIR. VOIDS PER URINAL. CONT WOUND CARE ORDERED. TURNED SOME BUT REFUSES AT TIMES. DENIES ANY PAIN ORE SOA. MOD ASSIST WITH 1-2 PERSON. REFUSED TO GET UP TONIGHT. CONT PLAN OF CARE.HAS SOME 2+EDEMA NOTED TO LOWER EXTREMITIES. TAKES MEDIATIONWELL WITH H20.
[2019-06-20 05:42] LABS: PROTIME 20.3 Seconds (9.3-11.4)
[2019-06-20 05:44] LABS: CALCIUM 7.7 mg/dL (8.5-10.1); CREATININE 0.8 mg/dL (0.7-1.3); POTASSIUM 3.3 mmol/L (3.5-5.1)
[2019-06-20 08:45] VITALS: BP 119/76
--- NOTE | 2019-06-20 11:33 | NUR ---
WOUND CARE F/U; THE COCCYX WOUND IS VIRTUALLY HEALED. CONTINUE TO OFFLOAD AND USE ZGUARD. CONTINUE POC DISCUSSED WITH RN
--- NOTE | 2019-06-20 17:50 | NUR ---
ASSUMED CARE OF PT AT 0715. PT IS A&OX4 WITH SOME PERIODS OF FORGETFULNESS, VITAL SIGNS ARE STABLE. DENIES PAIN. TURN Q2HR WHILE IN BED. DRESSING ON RIGHT HIP INTACT. 2+EDEMA BLE. K3.3 DR. THRASHER AWARES, POTASSIUM SUPPLEMENT ORDERED AND MED GIVEN. ADD REQUEST FOR BANANA ON BREAKFAST TRAY DAILY. PT LIKES BANANA BUT DOESN'T LIKE TO TAKE POTASSIUM, STILL HAS ONE DOSE FOR NIGHT MED. PT SAID HE DOESN'T WANT TO TAKE IT. WILL GIVE REPORT TO NIGHT NURSE TO CONTINUE TO MONITOR. NOTICED LASIX INCREASE TO BID NOW. ABLE TO USES URINAL BETTER WHEN HE LAYS DOWN BUT STILL SPILL URINE AT TIME. PT REFUSES ABDUCTOR PILLOW. CONTINUE TO BE ON HIP PRECAUTION. TRANSFERS WITH SLIDE BOARD WITH MOD ASSIST AND GAIT YOUSIF. DENIES PAIN. OFFERED SUPPORTIVE CARE. ENCOURAGED PT TO GET UP TO DINNING ROOM FOR LUNCH. REFUSES TO GET UP FOR DINNER. REASSESSMENT PER CHART. PT HAD BM TODAY. ABLE TO URINAL AT BEDSIDE WITH BARBER COLOR. FALL PRECAUTIONS IN PLACE AND NURSING WILL CONTINUE TO MONITOR.
[2019-06-20 19:25] VITALS: BP 94/55
--- NOTE | 2019-06-21 00:42 | NUR ---
PT ASSESSMENT COMPLETED AND VSS. MEDS GIVEN ORDERED AND WELL TOLERATED. FALL PRECAUTIONS IN PLACE. INC OF URINE EARLY DURING THE SHIFT. VOIDING PER URINAL AT THIS TIME. ASST WITH REPOSITION USING ZGUARD ON COCCYX AND BUTTOCK. PILLOWS FOR COMFORT. SLEEPING WELL. WILL CONTINUE TO MONITOR FREUQENTLY.
[2019-06-21 05:49] LABS: INR 1.7; PROTIME 17.7 Seconds (9.3-11.4)
[2019-06-21 08:00] VITALS: BP 117/76
--- NOTE | 2019-06-21 09:31 | NUR ---
P.T. DAILY CARE TOOL DOCUMENTED AT 0927 IS A RECREATED DOCUMENT WITH INFORMATION COLLECTED FROM PT, OT, AND NURSING DAILY CARE TOOLS TO REFLECT ACCURATE LEVELS OF ASSISTANCE ON THE TEAM CONFERENCE REPORTS.
--- NOTE | 2019-06-21 10:39 | PLAN ---
[facility] [place] [address] REHAB UNIT PLAN OF CARE Name: STAR DEVLIN Room #: 512-P ADM IN M.R.#: [id number] Admission: 06/06/19 Attend Phys: Master Rosado MD Discharge: Date of : 36 Report #: [id number] THIS REPORT FOR: //name// CC: Luis Rosado DATE OF SERVICE: 06/07/2019 HISTORY AND PHYSICAL/POSTADMISSION PHYSICIAN EVALUATION HISTORY OF PRESENT ILLNESS: The patient has been admitted for acute in-hospital inpatient rehabilitation. Please see my consult note dictation from yesterday and please see history and physical as per Angie Ford, nurse practitioner. I agree with her history and her physical examination findings, assessment and plan. The patient has a complex history where he originally admitted on 05/21/2019 with increased shortness of breath, was noted to have anemia workup revealed a colon mass. He ended up undergoing laparoscopic-assisted right colectomy along with a laparoscopic cholecystectomy, 05/30/2019. Course was complicated by complaints of right leg pain and upon evaluation of CT of the pelvis. He was shown to have a chronic femoral neck fracture with proximal migration of the femur. He also has been about 6 weeks or so out from her recent right total knee arthroplasty. The patient subsequently underwent a right proximal femoral hemiarthroplasty with cemented component on 06/03/2019. This was noted to be a right femoral neck fracture, possible pathologic fracture. He is allowed gentle weightbearing as he can tolerate. The patient had sustained a significant decline in his functional abilities premorbidly when he had been able to transfer himself back and forth to the wheelchair. He has since been needing full maximum assistance. He has been admitted for acute in-hospital inpatient interdisciplinary rehabilitation. As far as past medical history past, surgical history, allergies, social history: Please see the history and physical. MEDICATIONS: Please see the full medication listing. REVIEW OF SYSTEMS: Sleepy, no complaints of chest pain, shortness of breath or abdominal discomfort examination was seen earlier. No obvious distress. Last recorded temperature 98, pulse 75, respirations 22, blood pressure 107/68. CHEST: Sounded clear to auscultation. CARDIAC: Regular rate and rhythm. ABDOMEN: Bowel sounds positive, nontender. GENITOURINARY AND RECTAL: Deferred. He does have the indwelling Garrido catheter. He has the right abdominal incision. This appears to be intact. Right hip is dressed. He has the recent TIA with right knee incision. No calf swelling. He has decreased range of motion of the right knee and has some [address] [address] REHAB UNIT PLAN OF CARE Name: STAR DEVLIN Room #: 512-P [facility] IN .R.#: [id number] Admission: 06/06/19 Attend Phys: Master Rosado MD Discharge: Date of : 36 Report #: [id number] weakness and difficulty picking up that right lower extremity, probably a grade 2- proximally, 3+ distally. Left lower extremity is more of 3+ to 4-/5 bilateral upper extremity strength is probably a grade 4-/5. He has been needing full max assist to try to transfer. ASSESSMENT: An 83-year-old white male admitted for acute in-hospital inpatient rehabilitation with the following problem list: 1. Right chronic left femoral neck fracture, status post right hip hemiarthroplasty 06/03/2019, weightbearing as tolerated. 2. Colon cancer, status post laparoscopic right colectomy along with laparoscopic cholecystectomy, 05/30/2019. 3. Recent right total knee replacement approximately 6 weeks ago. 4. Premorbid wheelchair bound status, but was able to transfer himself. Noted to have 16/03 caregivers. 5. Ischemic cardiomyopathy. 6. History of atrial fibrillation. 7. History of sick sinus syndrome. 8. Implantable cardiac defibrillator and pacemaker implant. 9. Coronary artery disease with history of PTCA. PLAN: The patient has been admitted for acute in-hospital inpatient rehabilitation. From a postadmission physician evaluation perspective, there are no relevant changes since the preadmission screening. Please see the above review of prior and current medical and functional conditions and comorbidities. Please see the patient's previous and current functional status. As far as risk of complications, the patient has multiple medical comorbidities as noted above. Initial plan of care involves the interdisciplinary acute inpatient rehabilitation program. Measurable functional goals would be for the patient to become much more independent as far as basic transfers ideally to reach his prior functional status as far as being able to transfer himself and to reach his prior functional level as far as basic mobility and ADLs. Speech therapy is also assisting regarding cognition and communication issues. Prognosis is reasonably good with estimated length of stay at least a week and possibly more likely 10-14 days pending how he progresses. Potential barriers would include his multiple medical comorbidities and decreased functional status. The patient meets diagnostic criteria for an acute in-hospital inpatient rehabilitation stay. He meets medical necessity criteria. He does have the [facility] [address] [place] [address] REHAB UNIT PLAN OF CARE Name: STAR DEVLIN Room #: 512-P ADM IN .R.#: [id number] Admission: 06/06/19 Attend Phys: Master Rosado MD Discharge: Date of : 36 Report #: [id number] tolerance for therapies and has appropriate discharge goals back to the home setting. <ELECTRONICALLY SIGNED> By: Master Rosado MD 06/21/19 1039 [id number] Master Rosado MD /nt
--- NOTE | 2019-06-21 10:39 | PLAN ---
[facility] [place] [address] [place] [address] REHAB UNIT PLAN OF CARE Name: STAR DEVLIN Room #: 512-P ADM IN M.R.#: [id number] Admission: 06/06/19 Attend Phys: Master Rosado MD Discharge: Date of : 36 Report #: [id number] THIS REPORT FOR: //name// CC: Luis Rosado DATE OF SERVICE: 06/08/2019 PROGRESS NOTE/OVERALL PLAN OF CARE SUBJECTIVE: The patient is seen back today in followup. He is in no distress. Right hip is dressed. Right knee incision is intact. I gently raised up the right lower extremity with hip flexion and he was able to extend that right knee with quadriceps contraction probably at least a grade 3 to 3+. He is able to dorsiflex the ankle. He has a lot of difficulty with transfers and he is max assist sit to stand, max assist x 2, bed to wheelchair utilizing the sliding board. In occupational therapy, lower body dressing is dependent. He does have severe cognitive deficits and severe memory deficits. ASSESSMENT: 1. Right femoral neck fracture, status post hemiarthroplasty, weightbearing as tolerated. 2. Colon cancer, status post laparoscopic colectomy and cholecystectomy. 3. Question metabolic encephalopathy. 4. Recent right total knee replacement approximately 6 weeks prior to admission. 5. Congestive heart failure. 6. Anemia. 7. Degenerative arthritis. 8. Hypertension. PLAN: The overall plan of care is based on the preadmission screen, post-admission physician evaluation and information garnered from therapy assessments. 1. Estimated length of stay probably at least the next 7-14 days pending progress. 2. Medical prognosis is reasonably good. 3. Anticipated interventions includes the interdisciplinary acute inpatient rehabilitation program. 4. Anticipated functional outcomes would be to hopefully improve his overall transfers to try to reach a level that the caregivers can again assist him in the home setting. Also to improve his overall cognition. 5. Discharge destination would be back home with caregiver assistance. 6. Expected therapy by discipline includes PT, OT and speech 1 hour per day each five days a week throughout the duration of the acute inpatient rehabilitation stay. [facility] [address] [place] [address] REHAB UNIT PLAN OF CARE Name: QUITASTAR Room #: 512-P [facility] IN .R.#: [id number] Admission: 06/06/19 Attend Phys: Master Rosado MD Discharge: Date of : 36 Report #: [id number] ADDENDUM: The patient previously had been able to transfer himself independently and now is needing considerably more assistance in that regard. Currently, max assist. Bed to wheelchair is actually max assist of 2, sit to stand is max assist, however. <ELECTRONICALLY SIGNED> By: Master Rosado MD 06/21/19 1039 [id number] [id number] Master Rosado MD /PMT
--- NOTE | 2019-06-21 14:18 | NUR ---
team meeting, recommendation: ( pt, ot, nursing). [facility] with [facility] keep[facility]. slide board to assist with transfers at home. training with animal care service worker on thursday with therapy.
--- NOTE | 2019-06-21 15:05 | NUR ---
ASSUMED CARE OF PT AT 0715. REPORTS SLEPT WELL LAST NIGHT. DR. OTTO CAME TO SEE PT AND GAVE ORDER TO REMOVE WENDIE ON RIGHT HIP TODAY. WENDIE REMOVED ORDERED STERI STRIPS APPLIED. PT IS A&OX4 WITH SOME PERIODS OF FORGETFULNESS, VITAL SIGNS ARE STABLE. DENIES PAIN BUT HAS SOME PAIN WHEN STANDS UP DENIES NEED FOR PAIN MED. SORE ON BUTTOCKS IS GETTING BETTER. CONTINUE TO TURN Q2HR WHILE IN BED AND ON LOW AIR LOSS MATRESS. CONTINUE TO BE ON LASIX FOR EDEMA. PT ABLE TO USE URINAL WHILE IN BED, DRIPPING SOMETIMES. CONTINUE TO BE ON K SUPPLEMENT FOR K3.3 YESTERDAY, PT DOESN'T LIKE IT. HAD 3 DOSES ALREADAY AND EAT BANANA EVERY MORNING NOW. NOTIFIED DR. THRASHER AND OBTAIN ORDER TO RECHECK POTASSIUM TOMORROW TO SEE PT CAN BE OFF POTASSIUM SUPPLEMENT. CONTINUE TO BE ON DAILY WT. WT 193.3 LBS TODAY. MONITOR. CONTINUE TO BE ON HIP PRECAUTION. TRANSFERS WITH SLIDE BOARD WITH MOD ASSIST AND GAIT YOUSIF. DENIES PAIN. OFFERED SUPPORTIVE CARE. ENCOURAGED PT TO GET UP TO DINNING ROOM FOR LUNCH. REFUSES TO GET UP FOR DINNER. REASSESSMENT PER CHART. ASSISTED TO BSC. PT HAD SOFT BM TODAY. UP AND PARTICIPATES WITH THERAPISTS WITH LOT OF ENCOURAGEMENT. TEAM CONFERENCE TODAY. PT WILL BE DISCHARGE HOME WITH HH ON May. ENCOURAGE PT TO CONTINUE TO WORKING TOWARD DISCHARGE GOALS. FALL PRECAUTIONS IN PLACE AND NURSING WILL CONTINUE TO MONITOR.
[2019-06-21 19:28] VITALS: BP 102/66
--- NOTE | 2019-06-21 23:03 | NUR ---
PT ASSESSMENT COMPLETED AND VSS. MEDS GIVEN ORDERED AND WELL TOLERATED. FALL PRECAUTIONS IN PLACE. VOIDING PER URINAL. SLEEPING WELL. ASST WITH FREQUENT REPOSITION USING ZGUARD CREAM ON BUTTOCK. WILL CONTINUE TO MONITOR FREQUENTLY.
[2019-06-22 06:04] LABS: INR 1.7; PROTIME 17.9 Seconds (9.3-11.4)
[2019-06-22 06:07] LABS: ALBUMIN 2.4 g/dL (3.4-5.0); CALCIUM 7.8 mg/dL (8.5-10.1); POTASSIUM 3.4 mmol/L (3.5-5.1); TOTAL BILIRUBIN 0.5 mg/dL (<0.1-1.0); TOTAL PROTEIN 5.5 g/dL (6.4-8.2)
[2019-06-22 07:45] VITALS: BP 118/80
--- NOTE | 2019-06-22 11:55 | NUR ---
one of comfort keepers pd will come today for training with therapy and possible other cg will come tomorrow. [employer] will bring 47$ for slide broad through provider plus to be delivered prior dc home. per cm quality control microbiology supervisor ok to set up transportation home via wheel chair van with assistance inside pt home.
[2019-06-22] MEDS ORDERED: COUMADIN 2 MG TA2 M1 PO (12:19)
[2019-06-22] MEDS ORDERED: SERTRALINE HCL50 MG PO (12:19)
[2019-06-22] MEDS ORDERED: FUROSEMIDE 20 M20 MG PO (12:20)
--- NOTE | 2019-06-22 15:17 | NUR ---
ASSUMED CARE OF PT AT 0715. REPORTS SLEPT WELL LAST NIGHT. PT IS A&OX4 WITH SOME PERIODS OF FORGETFULNESS, VITAL SIGNS ARE STABLE. DENIES PAIN. UP FOR THERAPY BUT LIKE TO RESTING IN BED IN THE BETWEEN. CONTINUE TO TURN Q2HR WHILE IN BED AND ON LOW AIR LOSS MATRESS. CONTINUE TO BE ON LASIX FOR EDEMA. HAS 1-2+ ON BILATERAL DEPEND IF HE LAY IN BED OR SIT. STERRI STRIPS ON RIGHT HIP INTACT. SKIN TEAR ON RIGHT WRIST HEALED. PT ABLE TO USE URINAL WHILE IN BED, DRIPPING SOMETIMES. K 3.4, CONTINUE TO BE ON K SUPPLEMENT. PT REFUSED POTASSIUM THIS AM, ATE BANANA AT BREAKFAST. DR. THRASHER WAS HERE AND AWARE PT DOESN'T LIKE TAKING POTASSIUM HE IS OK FOR PT TO EAT BANANA AT LUNCH AND DINNER. DR. THRASHER WORKED ON DISCHARGE MEDS AND DISCHARGE PRESCRIPTIONS IN CHART. CONTINUE TO BE ON HIP PRECAUTION. TRANSFERS WITH SLIDE BOARD WITH MOD ASSIST AND GAIT YOUSIF. DENIES PAIN. OFFERED SUPPORTIVE CARE. PT WAS UP IN DINNING ROOM FOR LUNCH. ENCOURAGED PT TO GET UP TO DINNING ROOM FOR DINNER. REASSESSMENT PER CHART. ENCOURAGE PT TO CONTINUE TO WORKING TOWARD DISCHARGE GOALS. FALL PRECAUTIONS IN PLACE, CALL LIGHT WITHIN REACH. USES CALL LIGHT APPROPRIATELY. CHECK FREQUENTLY FOR NEEDS AND SAFETY.
[2019-06-22 19:33] VITALS: BP 115/75
--- NOTE | 2019-06-23 01:13 | NUR ---
ASSESSMENT: PT REMAIN ALERT AND ORIENT TIMES THREE, FORGETFUL AT TIMES. REFUSES TO BE TURNED MOST OF THE TIME. BARRIER CREAM APPLIED TO BUTTOCKS, AREA IS RED AND IS AT RISK FOR SKIN BREAKDOWN. PT DOES NOT SEEM TO UNDERSTAND THE REASON FOR TURNS. LOTS OF ENCOURAGEMENT GIVEN. POSSIBLE DC ON THUSDAY TO A SNU FACILITY. STILL FLAT AFFECT AND APPEARS TO NOT GRASP THE SIMPLEST TASK. WILL CONTINUE TO MONITOR.
[2019-06-23 05:52] LABS: CALCIUM 7.9 mg/dL (8.5-10.1); CREATININE 0.9 mg/dL (0.7-1.3); POTASSIUM 3.7 mmol/L (3.5-5.1)
[2019-06-23 05:54] LABS: INR 1.8; PROTIME 18.6 Seconds (9.3-11.4)
[2019-06-23 07:30] VITALS: BP 126/82
[2019-06-23 10:32] VITALS: BP 126/82
--- NOTE | 2019-06-23 10:43 | NUR ---
pt foster to dc. pt pd comfort keeper here for training with therapy and then hopefully to dc home around [phone] [facility]. pt to take the slide board he bought from [employer] for home use. comfort keeper will follow him home. [employer] will transport him home around 1330.
--- NOTE | 2019-06-23 13:14 | NUR ---
ASSUMED CARE OF PT AT 0715. PT IS A&OX4 AND VITAL SIGNS ARE STABLE. PT DENIES PAIN. PRIVATE AIDE ON UNIT FOR TRAINING WITH PT PRIOR TO DISHCARGE. ORDERS FOR DISCHARGE RECEIVED. WOUND CARE COMPLETED. DISCHARGE EDUCATION COMPLETED, DISCHARGE FORS SIGNED. PRIVATE AIDE REMOVED ITEMS FROM ROOM PRIOR TO DISCHARGE. DISCHARGE PACKET WITH PRESCRIPTION GIVEN IN ENVELOPE TO PRIVATE AIDE. PT AWAITING TRANSPORT AT THIS TIME. FALL PRECAUTIONS IN PLACE AND NURSING WILL CONTINUE TO MONITOR.
== END 2019-06-23 13:48 | disposition home health service (06) | DRG 535 ==
PROVIDERS: Internal Medicine Geriatric Medicine; Nurse Practitioner Family; ADMIT Physical Medicine & Rehabilitation
DX: S72.001A Fracture of unspecified part of neck of right femur, initial encounter for closed fracture (principal); G93.41 Metabolic encephalopathy; I50.23 Acute on chronic systolic (congestive) heart failure; D68.59 Other primary thrombophilia; I48.21 Permanent atrial fibrillation; Z96.651 Presence of right artificial knee joint; I25.5 Ischemic cardiomyopathy; I25.10 Atherosclerotic heart disease of native coronary artery without angina pectoris; M19.90 Unspecified osteoarthritis, unspecified site; I11.0 Hypertensive heart disease with heart failure; F41.9 Anxiety disorder, unspecified; D50.0 Iron deficiency anemia secondary to blood loss (chronic); F01.50 Vascular dementia, unspecified severity, without behavioral disturbance, psychotic disturbance, mood disturbance, and anxiety; Z60.2 Problems related to living alone; S80.811A Abrasion, right lower leg, initial encounter; X58.XXXA Exposure to other specified factors, initial encounter; Z86.73 Personal history of transient ischemic attack (TIA), and cerebral infarction without residual deficits; Z90.49 Acquired absence of other specified parts of digestive tract; Z99.3 Dependence on wheelchair; Z95.810 Presence of automatic (implantable) cardiac defibrillator; Z79.899 Other long term (current) drug therapy; Z79.82 Long term (current) use of aspirin; Z98.42 Cataract extraction status, left eye; Z80.8 Family history of malignant neoplasm of other organs or systems; Z82.49 Family history of ischemic heart disease and other diseases of the circulatory system; Z87.891 Personal history of nicotine dependence; Z95.5 Presence of coronary angioplasty implant and graft; Z88.8 Allergy status to other drugs, medicaments and biological substances; L89.152 Pressure ulcer of sacral region, stage 2; Y93.89 Activity, other specified; Y92.89 Other specified places as the place of occurrence of the external cause; Y99.8 Other external cause status
CPT/HCPCS: 10112